=== PATIENT | male | born 1995 | race Caucasian/White ===

== ENCOUNTER 2025-04-08 15:26 | Inpatient (IN) | payer OTHER, SELFPAY ==
--- NOTE | 2025-04-08 15:30 | ED.PSYCH ---
HPI - Psych General Chief Complaint: Psychiatric Symptoms Stated Complaint: Hearing voices, SI Time Seen by Provider: 04/08/25 15:52 Source: patient and old records reviewed Mode of arrival: ambulatory Limitations: no limitations History of Present Illness ED Provider: LOTTIE ROLLE Narrative: 29 yo male with PMH of ADHD, bipolar disorder, substance abuse but in recovery x 9 months, he is at a prison house but hates it here. He feels suicidal and is hearing voices. He hopes to go back to living near [place] as he wants to be closer to home. He denies any medical issues or concerns. He is taking his medications MD complaint: suicidal ideation, feels depressed and hallucinations Onset (ago): day(s) (several) Duration: getting worse History of same: Yes Relieving factors: none Exacerbating factors: other Context: significant life stressor Associated psychiatric symptoms: depression, suicidal ideation and auditory hallucinations Associated symptoms: denies other symptoms Treatments prior to arrival: none Related Data Home Medications ?Medication ?Instructions ?Recorded ?Confirmed olanzapine 20 mg tablet 20 mg PO BEDTIME 04/08/25 04/09/25 bupropion HCl 150 mg 24 hr tablet, 150 mg PO DAILY 04/09/25 04/09/25 extended release buspirone 7.5 mg tablet 7.5 mg PO QAM 04/09/25 04/09/25 dextroamphetamine-amphetamine ER 20 mg PO QAM 04/09/25 04/09/25 20 mg 24hr capsule,extend release (Adderall XR) divalproex 500 mg tablet,extended 1,000 mg PO BEDTIME 04/09/25 04/09/25 release 24 hr (Depakote ER) gabapentin 300 mg capsule 300 mg PO QAM 04/09/25 04/09/25 Allergies Allergy/AdvReac Type Severity Reaction Status Date / Time haloperidol (From Haldol) Allergy Unknown Verified 04/08/25 15:33 quetiapine (From Seroquel) Allergy Unknown Verified 04/08/25 15:33 risperidone (From Risperdal) Allergy Unknown Verified 04/08/25 15:33 Review of Systems Review of Systems: Constitutional : No Fever, No Chills ENT/Mouth : No Ear Pain, No Nasal Congestion, No sore throat Eyes: No Eye Pain, No Swelling, No Redness Cardiovascular : No Chest Pain, No SOB Respiratory : No Cough, No Sputum, No Dyspnea Gastrointestinal : No Nausea, No Vomiting, No Diarrhea, No Hematochezia, No Melena Genitourinary : No Dysuria, No Urinary Frequency, No Hematuria Musculoskeletal : No Myalgias Skin : No Skin Lesions, No rash Neuro : No Weakness, No Numbness, No Paresthesias, No Dizziness, No Headache Psych : positive Anxiety, positive Depression, positive SI no HI All other systems reviewed and are negative [facility], [facility] Past Medical History Attestation statement: The following information was validated with the patient. Source: old records reviewed Social History Social History Smoked in Last 30 Days: Yes Use of substances other than those prescribed or required for medical reasons: No Advance Directives: No Advance Directives Information Provided: Yes Do you have a plan to hurt others: No Plan Physical Exam Vital Signs: Vital Signs: Last Vital Signs Temp 98.0 F 04/11/25 09:11 Pulse 78 04/11/25 09:11 Resp 16 04/11/25 09:11 BP 116/61 04/11/25 09:11 Pulse Ox 98 04/11/25 09:11 O2 Del Method Room Air 04/11/25 09:11 BMI result Body Mass Index 23.6 Appearance: Alert. Oriented X3. No acute distress. Eyes: Pupils equal, round and reactive to light. ENT: Pharynx normal. Neck: Normal inspection. Neck supple. CVS: Normal heart rate and rhythm. Pulses normal. Respiratory: No respiratory distress. Breath sounds normal. Abdomen: Soft and nontender. Skin: Skin warm and dry. Normal skin color. Normal skin turgor. Extremities: No lower extremity edema. No calf ttp Neuro: Oriented X 3. No motor deficit. No sensory deficit. CN2-12 intact Course Course Course Narrative: Yuridia Akins [employer] 04/08/25 0944 This is a rapid medical exam. Deferred additional HPI, ROS, PE to primary provider. 29 yo male with history of schizophrenia, bipolar disorder, ADHD here with complaints of SI, hearing voices. Released from [facility] one month ago. Reporrs medication changes since then. NO substance use. NO physical complaints. Will order labs, PERAZA, safety checks VSS Reevaluation(s) Reevaluation #1: Providing p.o. medications for anxiety Time: 15:23 Reevaluation #2: DR. Krueger's progress note 04/10/2025 9:00. VSS, calm, continue with section 12, bed search is underway, will continue with physician observation. Time: 09:00 Reevaluation #3: Time: 08:50 Date: 04/11/25 Provider: ABDOUL Walker Patient in physician observation for psychiatric evaluation.? No acute events reported overnight. No current complaints. VS stable.? Patient is in bed search status. Will continue to monitor. Additional Reevaluation(s): Time: 13:49 Date: 04/11/25 Provider: Madison Dowell DO Physician observation ended at 149pm. Patient to be admitted as inpatient to psychiatry. Medications Administered Generic Name Dose Route Start Last Admin Trade Name Freq PRN Reason Stop Dose Admin Amphetamine/Dextroamphetamine 20 mg 04/09/25 17:00 04/11/25 09:05 Dextroamphetamine/Amphetamine Xr 10 Mg Cap.Er.24h PO 20 mg DAILY KARI Administration Bupropion HCl 150 mg 04/10/25 09:00 04/11/25 09:05 Bupropion Hcl Xl 150 Mg Tab.Er.24h PO 150 mg DAILY KARI Administration Buspirone HCl 7.5 mg 04/09/25 17:00 04/11/25 09:05 Buspirone Hcl 5 Mg Tablet PO 7.5 mg DAILY KARI Administration Divalproex Sodium 1,000 mg 04/09/25 21:00 04/10/25 21:32 Divalproex Sodium Er 500 Mg Tab.Er.24h PO 1,000 mg BEDTIME KARI Administration Gabapentin 300 mg 04/09/25 17:00 04/11/25 09:05 Gabapentin 300 Mg Capsule PO 300 mg DAILY KARI Administration Olanzapine 20 mg 04/08/25 21:55 04/10/25 21:32 Olanzapine 10 Mg Tablet PO 20 mg BEDTIME KARI Administration Discontinued Medications Generic Name Dose Route Start Last Admin Trade Name Freq PRN Reason Stop Dose Admin Diazepam 4 mg 04/09/25 15:23 04/09/25 15:45 Diazepam 2 Mg Tablet PO 04/09/25 15:24 4 mg ONCE ONE Administration Medical Decision Making Medical Decision Making MDM Narrative: 29 yo male with PMH of ADHD, bipolar disorder, substance abuse now here with SI and hearing voices he is compliant with medications but notes he hates his sober living area and wants to be closer to [place]. He has no medical issues or concerns at this time Differential Diagnosis Differential Diagnoses: The differential diagnosis associated with the presentation includes depression, SI Admission/Observation Consideration of admission/observation: Escalation of care including admission/observation considered physician observation started at 428pm pending CARE team Consult Healthcare Provider Management of the patient was discussed with: Behavioral Health Provider Lab Data [facility] Lab Attestation statement: I reviewed the patient's lab results. 04/08/25 16:00 04/08/25 16:00 Labs: Lab Results 04/08/25 04/08/25 04/08/25 Range/Units 15:55 16:00 17:20 WBC 5.9 (4.8-10.8) X10*3/uL RBC 4.03 L (4.60-5.80) X10*6/uL Hgb 13.5 L (14.0-18.0) g/dl Hct 37.1 L (42.0-52.0) % MCV 92.1 (80.0-98.0) fL MCH 33.5 H (27.0-33.0) pg MCHC 36.4 H (31.0-36.0) g/dl RDW 11.2 (11.0-16.0) % Plt Count 217 (160-400) X10*3/uL MPV 9.6 (9.4-12.4) fL Immature Gran % (Auto) 0.3 (0.0-0.4) % Neut % (Auto) 67.9 (45-73) % Lymph % (Auto) 19.1 L (20-40) % [place] % (Auto) 10.8 (2-11) % Eos % (Auto) 1.4 (0-4) % Baso % (Auto) 0.5 (0-2) % Lymph # (Auto) 1.1 L (1.2-4.9) X10*3/uL [place] # (Auto) 0.6 (0.1-1.2) X10*3/uL Eos # (Auto) 0.1 (0.0-0.4) X10*3/uL Baso # (Auto) 0.0 (0.0-0.2) X10*3/uL Abs Immat Gran (auto) 0.02 (0.00-0.03) X10*3/uL Absolute Neuts (auto) 4.0 (2.0-8.3) x10*3/uL Absolute Nucleated RBC 0.000 (0.0-0.012) X10*3/uL Nucleated RBC % (auto) 0.0 (0.0-0.2) /100WBC Sodium 139 (135-145) mmol/L Potassium 3.9 (3.3-5.1) mmol/L Chloride 105 (96-108) mmol/L Carbon Dioxide 26 (22-29) mmol/L Anion Gap 12 (12-20) BUN 5 L (9-16) mg/dL Creatinine 0.84 (0.5-1.4) mg/dL Estim Creat Clear Calc 127.4 Estimated GFR > 60 Random Glucose 93 (60-115) mg/dL Calcium 9.6 (8.4-10.2) mg/dL Total Bilirubin 0.3 (0.0-1.0) mg/dL Direct Bilirubin 0.1 (0.0-0.5) mg/dL AST 22 (5-37) U/L ALT 16 (0-40) U/L Alkaline Phosphatase 56 (39-117) U/L Total Protein 7.1 (6.5-8.0) g/dL Albumin 4.4 (3.5-5.0) g/dL Urine Color Urine Appearance Urine pH (5.0-9.0) Ur Specific [place] (1.005-1.025) Urine Protein (Neg-Trace) mg/dL Urine Glucose (UA) (Negative) mg/dL Urine Ketones (Negative) mg/dL Urine Blood (Negative) Urine Nitrite (Negative) Ur Leukocyte Esterase (Negative) Salicylates < 5.0 L (15-30) mg/dL Urine Opiates Screen Not Detected (Not Detect) Ur Buprenorphine Scrn Not Detected (Not Detect) ng/mL Ur Oxycodone Screen Not Detected (Not Detect) ng/mL Urine Methadone Screen Not Detected (Not Detect) ng/mL Urine Fentanyl Screen Not Detected (Not Detect) Acetaminophen < 3 (<30) mcg/mL Ur Barbiturates Screen Not Detected (Not Detect) Valproic Acid 43.4 L (50.0-100.0) mcg/mL Ur Phencyclidine Scrn Not Detected (Not Detect) Ur Amphetamines Screen Not Detected (Not Detect) U Benzodiazepines Scrn Not Detected (Not Detect) Urine Cocaine Screen Not Detected (Not Detect) U Marijuana (THC) Screen Not Detected (Not Detect) Ethyl Alcohol < 10 mg/dL 04/11/25 Range/Units 10:39 WBC (4.8-10.8) X10*3/uL RBC (4.60-5.80) X10*6/uL Hgb (14.0-18.0) g/dl Hct (42.0-52.0) % MCV (80.0-98.0) fL MCH (27.0-33.0) pg MCHC (31.0-36.0) g/dl RDW (11.0-16.0) % Plt Count (160-400) X10*3/uL MPV (9.4-12.4) fL Immature Gran % (Auto) (0.0-0.4) % Neut % (Auto) (45-73) % Lymph % (Auto) (20-40) % [place] % (Auto) (2-11) % Eos % (Auto) (0-4) % Baso % (Auto) (0-2) % Lymph # (Auto) (1.2-4.9) X10*3/uL [place] # (Auto) (0.1-1.2) X10*3/uL Eos # (Auto) (0.0-0.4) X10*3/uL Baso # (Auto) (0.0-0.2) X10*3/uL Abs Immat Gran (auto) (0.00-0.03) X10*3/uL Absolute Neuts (auto) (2.0-8.3) x10*3/uL Absolute Nucleated RBC (0.0-0.012) X10*3/uL Nucleated RBC % (auto) (0.0-0.2) /100WBC Sodium (135-145) mmol/L Potassium (3.3-5.1) mmol/L Chloride (96-108) mmol/L Carbon Dioxide (22-29) mmol/L Anion Gap (12-20) BUN (9-16) mg/dL Creatinine (0.5-1.4) mg/dL Estim Creat Clear Calc Estimated GFR Random Glucose (60-115) mg/dL Calcium (8.4-10.2) mg/dL Total Bilirubin (0.0-1.0) mg/dL Direct Bilirubin (0.0-0.5) mg/dL AST (5-37) U/L ALT (0-40) U/L Alkaline Phosphatase (39-117) U/L Total Protein (6.5-8.0) g/dL Albumin (3.5-5.0) g/dL Urine Color Yellow Urine Appearance Clear Urine pH 6.5 (5.0-9.0) Ur Specific [place] 1.025 (1.005-1.025) Urine Protein Negative (Neg-Trace) mg/dL Urine Glucose (UA) Negative (Negative) mg/dL Urine Ketones Trace (Negative) mg/dL Urine Blood Negative (Negative) Urine Nitrite Negative (Negative) Ur Leukocyte Esterase Negative (Negative) Salicylates (15-30) mg/dL Urine Opiates Screen (Not Detect) Ur Buprenorphine Scrn (Not Detect) ng/mL Ur Oxycodone Screen (Not Detect) ng/mL Urine Methadone Screen (Not Detect) ng/mL Urine Fentanyl Screen (Not Detect) Acetaminophen (<30) mcg/mL Ur Barbiturates Screen (Not Detect) Valproic Acid (50.0-100.0) mcg/mL Ur Phencyclidine Scrn (Not Detect) Ur Amphetamines Screen (Not Detect) U Benzodiazepines Scrn (Not Detect) Urine Cocaine Screen (Not Detect) U Marijuana (THC) Screen (Not Detect) Ethyl Alcohol mg/dL External Record Review External record reviewed: Outpatient record Social Determinants Patient?s care significantly limited by Social Determinants of Health including: Problems related to primary support group Discharge Plan Discharge Clinical Impression: Depression Patient Disposition: Admitted As Inpatient Interventions: [place]-Suicide Risk Severity Scale Last Done: 04/09/25 19:00 Print Language: Cook Islander
[2025-04-08 15:31] VITALS: BP 140/66; PULSE 89; RESP 18; TEMP 36.6; O2SAT 98; BMI 23.6
[2025-04-08 16:08] LABS: MANUAL DIFF FLAG NO
[2025-04-08 16:10] LABS: Hematocrit 37.1 % (42.0-52.0); Hemoglobin 13.5 g/dl (14.0-18.0); Imm Gran Abs Auto 0.02 X10*3/uL (0.00-0.03); Imm Gran Pct Auto 0.3 % (0.0-0.4); Lymphocytes Absolute Auto 1.1 X10*3/uL (1.2-4.9); Mean Corpuscular HGB Conc 36.4 g/dl (31.0-36.0); Mean Corpuscular Hemoglobin 33.5 pg (27.0-33.0); Mean Corpuscular Volume 92.1 fL (80.0-98.0); NRBC Abs Auto 0.000 X10*3/uL (0.0-0.012); NRBC Pct Auto 0.0 /100WBC (0.0-0.2); Platelet Count 217 X10*3/uL (160-400); Red Blood Count 4.03 X10*6/uL (4.60-5.80); White Blood Count 5.9 X10*3/uL (4.8-10.8)
[2025-04-08 16:22] LABS: Cannabinoid Screen Urine Not Detected (Not Detect)
[2025-04-08 16:33] LABS: Alanine Aminotransferase 16 U/L (0-40); Albumin Level 4.4 g/dL (3.5-5.0); Alkaline Phosphatase 56 U/L (39-117); Anion Gap 12 (12-20); Aspartate Amino Transferase 22 U/L (5-37); Blood Urea Nitrogen 5 mg/dL (9-16); Calcium 9.6 mg/dL (8.4-10.2); Carbon Dioxide 26 mmol/L (22-29); Chloride 105 mmol/L (96-108); Creatinine Clr Calc Pharmacy 127.4; Estimated Glomerular Filt Rate > 60; Potassium 3.9 mmol/L (3.3-5.1); Sodium 139 mmol/L (135-145); Total Protein 7.1 g/dL (6.5-8.0)
[2025-04-08 16:36] LABS: Acetaminophen LAB < 3 mcg/mL (<30); Salicylate < 5.0 mg/dL (15-30)
--- NOTE | 2025-04-08 19:36 | PC.NURSE ---
Assumed care of patient at 1845, patient appears to be in no apparent distress this evening, resting in bed, calm and coopertive, offering no complaints to staff. Continue plan of care for IPLOC
[2025-04-08 20:19] VITALS: BP 132/65; PULSE 68; RESP 18; TEMP 36.7; O2SAT 99
--- NOTE | 2025-04-08 20:47 | PC.NURSE ---
RE: med rec this RN attempted to complete pts med rec. Pt verbalizes that he takes Depakote (unsure of dose) as well as Ativan 2mg (unsure of timing) and Zyprexa 20mg at bedtime. This RN attempted to call the [facility] to verify, unable to get through to staff. Pt states he does not know what pharmacy he receives his medications through as the staff at the [facility] manage his medications for him
[2025-04-08 22:00] VITALS: RESP 16
[2025-04-09 06:44] VITALS: BP 112/64; PULSE 62; RESP 17; TEMP 36.5; O2SAT 98
--- NOTE | 2025-04-09 07:37 | PC.NURSE ---
Pt has been sleeping since this RN arrival.
--- NOTE | 2025-04-09 08:01 | PC.NURSE ---
Message left at [facility] in an attempt to complete med Rec. [phone]
--- NOTE | 2025-04-09 10:51 | PC.NURSE ---
pt continues to sleep. [place] called again. unable to reach a human.
--- NOTE | 2025-04-09 15:01 | PC.NURSE ---
Patient is requesting Adderall, but cannot recall dosage or what pharmacy he uses. Attempted to contact Karen Kan Jonn Guerra without response. CARE team aware and to attempt to reach out to [facility] regarding an updated medication list. Pharmacy also aware.
[2025-04-09 15:13] VITALS: BP 115/60; PULSE 82; RESP 14; TEMP 36.8; O2SAT 97
--- NOTE | 2025-04-09 16:17 | PC.NURSE ---
Spoke with Kelly at [facility] regarding medication list. Called [phone]. Fax number provided. Awaiting receipt.
--- NOTE | 2025-04-09 16:32 | PC.NURSE ---
Received medication list from Karen Kan ([facility]) via fax. Medication reconciliation completed. Copy of list also faxed to pharmacy. Provider aware (Dr. Ochoa). List filed into paper chart.
--- NOTE | 2025-04-09 17:01 | PHA.MEDREC ---
Pharmacy Consult ? Medication Reconciliation Pharmacy has reviewed the medication reconciliation done by nursing.
--- NOTE | 2025-04-09 22:41 | PC.NURSE ---
Patient sleeping at this time. Respirations even/unlabored. No acute distress noted at this time. Care ongoing by this RN.
--- NOTE | 2025-04-10 01:01 | PC.NURSE ---
Report received and care assumed at 2300. Pt has been resting comfortably in his bed without issue noted.
--- NOTE | 2025-04-10 07:04 | PC.NURSE ---
Patient is a 29 yo male with a history of schizoaffective d/o, ADHD, polysubstance abuse, complex trauma and multiple suicide attempts presents from the [facility] with worsening depression, SI and command auditory hallucinations. Resting quietly at this time. Respirations even and non-labored. No distress noted. Pending IPLOC.
[2025-04-10] MEDS: buPROPion HCl XL 150 MG TAB.ER.24H PO (09:36)
[2025-04-10] MEDS: Dextroamphetamine/Amphetamine XR 10 MG CAP.ER.24H 20 MG PO (09:37)
[2025-04-10 09:39] VITALS: BP 154/90; PULSE 101; RESP 18; TEMP 36.7; O2SAT 98
[2025-04-10 15:45] VITALS: BP 115/65; PULSE 96; RESP 14; TEMP 37.1; O2SAT 99
[2025-04-10 19:51] VITALS: BP 114/58; PULSE 85; RESP 16; TEMP 36.9; O2SAT 98
--- NOTE | 2025-04-11 | ECG_ITS ---
Test Reason : R/O PROLONGED QT Blood Pressure : */* mmHG Vent. Rate : 66 BPM Atrial Rate : 66 BPM P-R Int : 128 ms QRS Dur : 90 ms QT Int : 376 ms P-R-T Axes : 6 68 47 degrees QTcB Int : 394 ms Normal sinus rhythm Normal ECG No previous ECGs available Referred By: Madison Dowell Electronically Signed By: KINGS CSOME MD
--- NOTE | 2025-04-11 06:00 | PC.NURSE ---
Pt slept throughout the night. No apparent distress noted. Breaths equal even and unlabored with equal chest rises. Monitoring is ongoing.
--- NOTE | 2025-04-11 07:18 | PC.NURSE ---
Assumed care of patient at 0645 patient appears to be in no apparent distress this am, resting in bed, respirations even and unlabored. Continue plan of care for IPLOC
[2025-04-11] MEDS: Dextroamphetamine/Amphetamine XR 10 MG CAP.ER.24H 20 MG PO (09:05)
[2025-04-11] MEDS: buPROPion HCl XL 150 MG TAB.ER.24H PO (09:05)
[2025-04-11 09:11] VITALS: BP 116/61; PULSE 78; RESP 16; TEMP 36.7; O2SAT 98
--- NOTE | 2025-04-11 09:13 | MHC.EDTECH ---
Urine cup at bedside, patient aware that sample needs to be given, unable to void at this time.
[2025-04-11 10:47] LABS: Appearance Urine Clear; Glucose Urine UA Negative (Negative); PH 6.5 (5.0-9.0); Specific Gravity - Urine 1.025 (1.005-1.025)
[2025-04-11 15:00] VITALS: BP 122/64; PULSE 68; RESP 16; TEMP 36.6; O2SAT 97
[2025-04-11 16:43] VITALS: BMI 23.6
--- NOTE | 2025-04-11 17:10 | PC.NURSE ---
Giovanni was admitted to M3 at 1452 from [facility] Pod on CV for treatment of mood disorder with psychosis and si. He lives at [facility] and has been experiencing increased ah and vh and depressed mood since his parole ended about a month ago. On arrival to the ED he was endorsing SI with a plan to hang himself. He was in the pod for 3 days. On arrival to the unit he denies current SI, HI, plan or intent to harm self or others. He denies AH and VH. Pt wants to return to [place] where he grew up and his family and friends are there. He is alert, with constricted affect. He participated in his nursing assessment but appeared guarded with some thought blocking. Mood is depressed. He reports good appetite and good sleep. He has been clean from crack for 10 months and tox screen is negative. He denies medical issues?and denies physical complaint. Skin check is notable for a sunburn. Safety Checks are q 15 minutes.
--- NOTE | 2025-04-11 17:23 | PC.NURSE ---
[facility] [place] clinical statistical programmer Lyn Melisa [phone] called to coordinate care. Pt gave one time verbal permission for me to talk to her but declined to sign ROIs except for his insurance.
--- NOTE | 2025-04-11 19:58 | HO.PSYADMNOT ---
HPI Date of Service: 04/11/25 Chief Complaint: CRISIS Sources of Information: patient interviewed, chart reviewed and crisis/core team assessment reviewed HPI Subjective Notes: [place] Warning and Conditional Voluntary Healthcare Proxy: No Guardianship: No Medical Problems Affecting Mental Status: No Narrative: Per care team notes, patient is a 29 years old why Maltese speaking male with history of schizophrenic bipolar disorder, ADHD, cocaine/crack use DO who self presented to [facility] due to concerns SI and hallucinations. Reports increase in depression the past month while at the [facility]. On admission to [facility], patient reports main reason brought him here is suicidal thoughts . Denies plan or intention. Reports everything built up in the past month, increased anxiety and increased aggravated. Reported he has been staying with his friends but preferred to go back to [place] where he has friends and family in the area. Denies SI/SIB/HI//AVH. Denied history of hallucinations, reports history of suicidal thoughts history without plan or intent to harm himself. Reports wants suicide attempt history when he was 14 years old as he tried to hang himself when he was in the [facility] and was stopped. Reports sleep and appetite has been good. Mood is alright . Reports depression a 5/10. He is incongruent with his mood, denies anxiety at 1st and then when asking about the goals to work on whle he is here, he reports wanted to work on depression and anxiety. He also wants to get medication adjustment. Denies any medical condition, denies surgical history. Denies trauma history. History of crack use but not currently, last use was 9 months ago. Smoking marijuana daily but also stopped it for 9 months. He was not sure if he smokes cigarettes. No symptoms of withdrawal on any substances. Denies alcohol use. History of a lot of admission in the past, with last admission was a year ago, unsure where he is was admitted and for what reason I do not remember . Denies PHP, denies detox history. Reports history of ADHD, bipolar, and schizophrenic. He is depressed, underlying irritability, but engageable, somewhat guarded. Do not appear to be psychotic, do not make any delusional paranoid statements. No safety concerns at this current time, he is open for treatment, and he wants help. Past Psychiatric History: A lot [facility] admissions, last admission was a year ago, do not remember the place reasons he was admitted last time. Currently have outpatient psychiatrist, but wants to return to [place]. Need to reconnect with outpatient in the area. No current therapist or PCP. He is not interested in in new therapist/a PCP Medication trials: Haldol make him visual hallucination: Seeing weird colors. He was fainted on Seroquel, and risperidone causing hives/rash Medical Evaluation Reviewed: Yes [facility] Narrative: Denies Narrative: Denies Family History: Parents are alive. He has 5 siblings. Reports he has known not talking to them the past month. He not sure if anyone has mental health illnesses. Patient does not want to disclose family of substance use their own business Social History: He is single, never , have no children, not having his own place, but has been staying with friends. Wanted to go back to [place] where he has friends and families. Graduated from high school. Currently has no SSI/or SSDI. Not working. Substance History: History of using crack and marijuana. However reports has not used for 9 months. Denies cigarette smoking. Denies other substance use. Denied detox history Trauma History: Denies Diagnostics Vital Signs (24Hr): Vital Signs - 24 hr 04/11/25 09:11 04/11/25 15:00 Temperature 98.0 F 97.8 F Pulse Rate 78 68 Respiratory Rate 16 16 Blood Pressure 116/61 122/64 Pulse Oximetry 98 97 Oxygen Delivery Method Room Air Room Air BMI result Body Mass Index 23.6 Labs 04/08/25 16:00 04/08/25 16:00 Labs: Laboratory Results - last 48 hr 04/11/25 10:39 Urine Color Yellow Urine Appearance Clear Urine pH 6.5 Ur Specific [place] 1.025 Urine Protein Negative Urine Glucose (UA) Negative Urine Ketones Trace Urine Blood Negative Urine Nitrite Negative Ur Leukocyte Esterase Negative Meds/Allergies Meds Home Medications ?Medication ?Instructions ?Recorded ?Confirmed ?Type olanzapine 20 mg tablet 20 mg PO BEDTIME 04/08/25 04/09/25 History bupropion HCl 150 mg 24 hr tablet, 150 mg PO DAILY 04/09/25 04/09/25 History extended release buspirone 7.5 mg tablet 7.5 mg PO QAM 04/09/25 04/09/25 History dextroamphetamine-amphetamine ER 20 mg PO QAM 04/09/25 04/09/25 History 20 mg 24hr capsule,extend release (Adderall XR) divalproex 500 mg tablet,extended 1,000 mg PO BEDTIME 04/09/25 04/09/25 History release 24 hr (Depakote ER) gabapentin 300 mg capsule 300 mg PO QAM 04/09/25 04/09/25 History Allergies Allergies Allergy/AdvReac Type Severity Reaction Status Date / Time haloperidol (From Haldol) Allergy Unknown Verified 04/08/25 15:33 quetiapine (From Seroquel) Allergy Unknown Verified 04/08/25 15:33 risperidone (From Risperdal) Allergy Unknown Verified 04/08/25 15:33 Mental Status Exam Mental Status Exam Narrative: Patient is alert and oriented x4; behavior is cooperative, someehat guarded with underline irritability, mild to moderate anxiety; patient is not in distress; dressed in hospital attire with kempt hair andt adequate hygiene; mood is described as alright and affect incongruent; eye contact appropriate; Speech is normal rate, volume and prosody and not pressured; no psychomotor agitation/retardation present; thought process is organized and goal directed; Thought content is WNL, want treatment, pertinent to relevant topics and without any delusional content, paranoid ideation or grandiosity; denies any SI/SIB/HI. Denies AH and there is no evidence of perceptual disturbance. Patient's insight and judgment impaired. Assessment & Plan Assessment & Plan (1) Schizophrenic disorder: Status: Acute Code(s): F20.9 - Schizophrenia, unspecified (2) Bipolar affect, depressed: Status: Acute Code(s): F31.30 - Bipolar disorder, current episode depressed, mild or moderate severity, unspecified (3) ADHD (attention deficit hyperactivity disorder): Status: Acute Code(s): F90.9 - Attention-deficit hyperactivity disorder, unspecified type Plan HPI: patient is a 29 years old why Maltese speaking male with history of schizophrenic bipolar disorder, ADHD, cocaine/crack use disorder who self presented to [facility] due to concerns SI and hallucinations. Reports increase in depression the past month while at the [facility]. Formulation/clinical reasoning: Increasing in depression/anxiety/and suicidal thoughts in the past month. History of bipolar, schizophrenic, ADHD, history of suicide attempt by hanging self. Minimal family and support system, unstable housing. Given the above information, patient would be benefit from restrictive environment for own safety, medication adjustment, and refer patient to outpatient psychiatry services for aftercare upon discharge Hospital course: 04/11/25: Restart home medications. We will check the Depakote level in the next couple of days. VPA level 41.2 low. Not sure if patient has been compliant with meds prior to be admitted. Will add 250mg at HS. Total of 1,250mg ER at HS for mood. Increase the BuSpar from 7.5 daily to 7+ twice a day for anxiety. Plan Patient on 15 minute checks for safety. Admitted to [facility]. CV. Work with treatment team to do collateral and for for of appointments for aftercare. Check Depakote level at appropriate time in 3-5 days. Patient educated on: diagnosis, medication risk/benefits and therapeutic strategies Informed Consent: understands and further education needed Reason for continued inpatient stay Substantial Risk for: med/psych decompensation Statement Statement: I have reviewed the history and physical and performed a pertinent examination on my patient. No changes have occurred unless specified. If the History and Physical was not performed prior to admission, the Hospitalist's service will be consulted for completing the admission physical. Time Spent With Patient Time: Total time managing care of this patient today ____ minutes.
[2025-04-11 20:00] VITALS: BP 139/66; PULSE 91; RESP 15; TEMP 37.2; O2SAT 98
[2025-04-11] MEDS: Divalproex Sodium ER 250 MG TAB.ER.24H PO (20:52)
[2025-04-12 07:28] VITALS: BP 126/67; PULSE 72; RESP 16; TEMP 36.4; O2SAT 98
[2025-04-12] MEDS: buPROPion HCl XL 150 MG TAB.ER.24H PO (08:48)
[2025-04-12] MEDS: Dextroamphetamine/Amphetamine XR 10 MG CAP.ER.24H 20 MG PO (08:48)
--- NOTE | 2025-04-12 10:29 | HO.PSYCHPN ---
Subjective Subjective Date of Service: 04/12/25 Reason For Visit: CRISIS Subjective Notes: Conditional Voluntary Interim History: Active on unit. Patient reports feeling depressed d/t wanting to return to [place] to be near family and friends. Patient reports he does not want to return to [facility] d/t not liking anyone there . He reports having auditory hallucinations being negative and visual hallucinations of colors . denies SI/HI. Valproic acid level 43.4 on 04/08/25. Continue current tx plan. Medication Compliance: Yes Side effects from medications: No Attending Groups: No Mental Status Exam Mental Status Exam Narrative: Pt is alert and oriented; behavior is cooperative and calm; dressed in casual attire; mood is described as depressed ; eye contact appropriate; Speech is normal rate, volume and not pressured; thought process is organized; Thought content is on returning to [place]; denies SI/HI.Pt reports +AH/VH Diagnostics Vital Signs (24Hr): Vital Signs - 24 hr 04/11/25 15:00 04/11/25 20:00 04/12/25 07:28 Temperature 97.8 F 99 F 97.5 F Pulse Rate 68 91 72 Respiratory Rate 16 15 16 Blood Pressure 122/64 139/66 126/67 Pulse Oximetry 97 98 98 Oxygen Delivery Method Room Air Room Air Room Air BMI result Body Mass Index 23.6 Labs 04/08/25 16:00 04/08/25 16:00 Labs: Laboratory Results - last 48 hr 04/11/25 10:39 Urine Color Yellow Urine Appearance Clear Urine pH 6.5 Ur Specific [place] 1.025 Urine Protein Negative Urine Glucose (UA) Negative Urine Ketones Trace Urine Blood Negative Urine Nitrite Negative Ur Leukocyte Esterase Negative Medications Medications Current Medications Acetaminophen (Acetaminophen 325 Mg Tablet) 650 mg PO Q6H PRN PRN Reason: Headache/Pain, Scale 1-10 Al Hydroxide/Mg Hydroxide (Magnesium Hydrox/Alum Hydrox 30 Ml Oral.Susp) 30 ml PO Q6H PRN PRN Reason: Heartburn/Nausea Amphetamine/Dextroamphetamine (Dextroamphetamine/Amphetamine Xr 10 Mg Cap.Er.24h) 20 mg PO DAILY [facility] Last Admin: 04/12/25 08:48 Dose: 20 mg Bupropion HCl (Bupropion Hcl Xl 150 Mg Tab.Er.24h) 150 mg PO DAILY [facility] Last Admin: 04/12/25 08:48 Dose: 150 mg Buspirone HCl (Buspirone Hcl 5 Mg Tablet) 7.5 mg PO BID [facility] Last Admin: 04/12/25 08:48 Dose: 7.5 mg Divalproex Sodium (Divalproex Sodium Er 500 Mg Tab.Er.24h) 1,000 mg PO BEDTIME [facility] Last Admin: 04/11/25 20:43 Dose: 1,000 mg Divalproex Sodium (Divalproex Sodium Er 250 Mg Tab.Er.24h) 250 mg PO BEDTIME [facility] Last Admin: 04/11/25 20:52 Dose: 250 mg Gabapentin (Gabapentin 300 Mg Capsule) 300 mg PO DAILY [facility] Last Admin: 04/12/25 08:49 Dose: 300 mg Hydroxyzine HCl (Hydroxyzine Hcl 25 Mg Tablet) 25 mg PO Q6H PRN PRN Reason: mild anxiety Magnesium Hydroxide (Milk Of Magnesia 30 Ml Oral.Susp) 30 ml PO DAILY PRN PRN Reason: Constipation Nicotine (Nicotine 21 Mg Patch.Td24) 21 mg TRANSDERMA DAILY [facility] Last Admin: 04/12/25 08:48 Dose: Not Given Nicotine Polacrilex (Nicotine Polacrilex 2 Mg Gum) 4 mg BUCCAL Q2H PRN PRN Reason: Nicotine Cravings Olanzapine (Olanzapine 10 Mg Tablet) 20 mg PO BEDTIME [facility] Last Admin: 04/11/25 20:42 Dose: 20 mg Olanzapine (Olanzapine 5 Mg Tablet) 5 mg PO Q4H PRN PRN Reason: agitation Trazodone HCl (Trazodone Hcl 50 Mg Tablet) 50 mg PO BEDTIME MRX1 PRN PRN Reason: Insomnia Allergies Allergies Allergy/AdvReac Type Severity Reaction Status Date / Time haloperidol (From Haldol) Allergy Unknown Verified 04/08/25 15:33 quetiapine (From Seroquel) Allergy Unknown Verified 04/08/25 15:33 risperidone (From Risperdal) Allergy Unknown Verified 04/08/25 15:33 Assessment & Plan Assessment & Plan (1) Schizophrenic disorder: Status: Acute Code(s): F20.9 - Schizophrenia, unspecified (2) Bipolar affect, depressed: Status: Acute Code(s): F31.30 - Bipolar disorder, current episode depressed, mild or moderate severity, unspecified (3) ADHD (attention deficit hyperactivity disorder): Status: Acute Code(s): F90.9 - Attention-deficit hyperactivity disorder, unspecified type Plan HPI: patient is a 29 years old why Polish speaking male with history of schizophrenic bipolar disorder, ADHD, cocaine/crack use disorder who self presented to [facility] due to concerns SI and hallucinations. Reports increase in depression the past month while at the [facility]. Formulation/clinical reasoning: Increasing in depression/anxiety/and suicidal thoughts in the past month. History of bipolar, schizophrenic, ADHD, history of suicide attempt by hanging self. Minimal family and support system, unstable housing. Given the above information, patient would be benefit from restrictive environment for own safety, medication adjustment, and refer patient to outpatient psychiatry services for aftercare upon discharge Hospital course: 04/11/25: Restart home medications. We will check the Depakote level in the next couple of days. VPA level 41.2 low. Not sure if patient has been compliant with meds prior to be admitted. Will add 250mg at HS. Total of 1,250mg ER at HS for mood. Increase the BuSpar from 7.5 daily to 7+ twice a day for anxiety. Plan Patient on 15 minute checks for safety. Admitted to [facility]. CV. Work with treatment team to do collateral and for for of appointments for aftercare. Check Depakote level at appropriate time in 3-5 days. 04/12: Active on unit. Patient reports feeling depressed d/t wanting to return to [place] to be near family and friends. Patient reports he does not want to return to [facility] d/t not liking anyone there . He reports having auditory hallucinations being negative and visual hallucinations of colors . denies SI/HI. Valproic acid level 43.4 on 04/08/25. Continue current tx plan. Patient educated on: diagnosis, medication risk/benefits and therapeutic strategies Reason for continued inpatient stay Substantial Risk for: med/psych decompensation Time Spent With Patient Time: Total time managing care of this patient today _20___ minutes.
[2025-04-12 20:00] VITALS: BP 120/56; PULSE 83; RESP 16; TEMP 36.9; O2SAT 95
[2025-04-12] MEDS: Divalproex Sodium ER 250 MG TAB.ER.24H PO (20:11)
[2025-04-13 08:00] VITALS: BP 98/57; PULSE 73; RESP 16; TEMP 36.9; O2SAT 98
[2025-04-13] MEDS: Dextroamphetamine/Amphetamine XR 10 MG CAP.ER.24H 20 MG PO (08:37)
[2025-04-13] MEDS: buPROPion HCl XL 150 MG TAB.ER.24H PO (08:37)
--- NOTE | 2025-04-13 14:22 | HO.PSYCHPN ---
Subjective Subjective Date of Service: 04/13/25 Reason For Visit: CRISIS Subjective Notes: Conditional Voluntary Interim History: Active on unit. social with peers. Patient reports feeling a little anxious and depressed ; he reports he does not want to return to [facility] and doesn't want to be sober . pt stated, I want to be out there using crack with my friends . T/W and medical social consultant encouraged pt to return to [facility] to maintain sobriety; pt agreeable. denies SI/HI/AH/VH. Valproic acid level to be drawn tomorrow morning. Continue current tx plan. Medication Compliance: Yes Side effects from medications: No Attending Groups: Intermittent Mental Status Exam Mental Status Exam Narrative: Pt is alert and oriented; behavior is cooperative and calm; dressed in casual attire; mood is described as a little depressed ; eye contact appropriate; Speech is normal rate, volume and not pressured; thought process is organized; Thought content is on returning to [place]; denies SI/HI/AH/VH. Diagnostics Vital Signs (24Hr): Vital Signs - 24 hr 04/12/25 20:00 04/13/25 08:00 Temperature 98.4 F 98.5 F Pulse Rate 83 73 Respiratory Rate 16 16 Blood Pressure 120/56 L 98/57 L Pulse Oximetry 95 98 Oxygen Delivery Method Room Air Room Air BMI result Body Mass Index 23.6 Labs 04/08/25 16:00 04/08/25 16:00 Medications Medications Current Medications Acetaminophen (Acetaminophen 325 Mg Tablet) 650 mg PO Q6H PRN PRN Reason: Headache/Pain, Scale 1-10 Al Hydroxide/Mg Hydroxide (Magnesium Hydrox/Alum Hydrox 30 Ml Oral.Susp) 30 ml PO Q6H PRN PRN Reason: Heartburn/Nausea Amphetamine/Dextroamphetamine (Dextroamphetamine/Amphetamine Xr 10 Mg Cap.Er.24h) 20 mg PO DAILY [facility] Last Admin: 04/13/25 08:37 Dose: 20 mg Bupropion HCl (Bupropion Hcl Xl 150 Mg Tab.Er.24h) 150 mg PO DAILY [facility] Last Admin: 04/13/25 08:37 Dose: 150 mg Buspirone HCl (Buspirone Hcl 5 Mg Tablet) 7.5 mg PO BID [facility] Last Admin: 04/13/25 08:38 Dose: 7.5 mg Divalproex Sodium (Divalproex Sodium Er 500 Mg Tab.Er.24h) 1,000 mg PO BEDTIME [facility] Last Admin: 04/12/25 20:11 Dose: 1,000 mg Divalproex Sodium (Divalproex Sodium Er 250 Mg Tab.Er.24h) 250 mg PO BEDTIME [facility] Last Admin: 04/12/25 20:11 Dose: 250 mg Gabapentin (Gabapentin 300 Mg Capsule) 300 mg PO DAILY [facility] Last Admin: 04/13/25 08:37 Dose: 300 mg Hydroxyzine HCl (Hydroxyzine Hcl 25 Mg Tablet) 25 mg PO Q6H PRN PRN Reason: mild anxiety Last Admin: 04/13/25 11:32 Dose: 25 mg Magnesium Hydroxide (Milk Of Magnesia 30 Ml Oral.Susp) 30 ml PO DAILY PRN PRN Reason: Constipation Nicotine (Nicotine 21 Mg Patch.Td24) 21 mg TRANSDERMA DAILY [facility] Last Admin: 04/13/25 08:40 Dose: Not Given Nicotine Polacrilex (Nicotine Polacrilex 2 Mg Gum) 4 mg BUCCAL Q2H PRN PRN Reason: Nicotine Cravings Olanzapine (Olanzapine 10 Mg Tablet) 20 mg PO BEDTIME [facility] Last Admin: 04/12/25 20:11 Dose: 20 mg Olanzapine (Olanzapine 5 Mg Tablet) 5 mg PO Q4H PRN PRN Reason: agitation Last Admin: 04/13/25 11:32 Dose: 5 mg Trazodone HCl (Trazodone Hcl 50 Mg Tablet) 50 mg PO BEDTIME MRX1 PRN PRN Reason: Insomnia Allergies Allergies Allergy/AdvReac Type Severity Reaction Status Date / Time haloperidol (From Haldol) Allergy Unknown Verified 04/08/25 15:33 quetiapine (From Seroquel) Allergy Unknown Verified 04/08/25 15:33 risperidone (From Risperdal) Allergy Unknown Verified 04/08/25 15:33 Assessment & Plan Assessment & Plan (1) Schizophrenic disorder: Status: Acute Code(s): F20.9 - Schizophrenia, unspecified (2) Bipolar affect, depressed: Status: Acute Code(s): F31.30 - Bipolar disorder, current episode depressed, mild or moderate severity, unspecified (3) ADHD (attention deficit hyperactivity disorder): Status: Acute Code(s): F90.9 - Attention-deficit hyperactivity disorder, unspecified type Plan HPI: patient is a 29 years old why Spanish speaking male with history of schizophrenic bipolar disorder, ADHD, cocaine/crack use disorder who self presented to [facility] due to concerns SI and hallucinations. Reports increase in depression the past month while at the [facility]. Formulation/clinical reasoning: Increasing in depression/anxiety/and suicidal thoughts in the past month. History of bipolar, schizophrenic, ADHD, history of suicide attempt by hanging self. Minimal family and support system, unstable housing. Given the above information, patient would be benefit from restrictive environment for own safety, medication adjustment, and refer patient to outpatient psychiatry services for aftercare upon discharge Hospital course: 04/11/25: Restart home medications. We will check the Depakote level in the next couple of days. VPA level 41.2 low. Not sure if patient has been compliant with meds prior to be admitted. Will add 250mg at HS. Total of 1,250mg ER at HS for mood. Increase the BuSpar from 7.5 daily to 7+ twice a day for anxiety. Plan Patient on 15 minute checks for safety. Admitted to [facility]. CV. Work with treatment team to do collateral and for for of appointments for aftercare. Check Depakote level at appropriate time in 3-5 days. 04/12: Active on unit. Patient reports feeling depressed d/t wanting to return to [place] to be near family and friends. Patient reports he does not want to return to [facility] d/t not liking anyone there . He reports having auditory hallucinations being negative and visual hallucinations of colors . denies SI/HI. Valproic acid level 43.4 on 04/08/25. Continue current tx plan. 04/13: Active on unit. social with peers. Patient reports feeling a little anxious and depressed ; he reports he does not want to return to [facility] and doesn't want to be sober . pt stated, I want to be out there using crack with my friends . T/W and medical social consultant encouraged pt to return to [facility] to maintain sobriety; pt agreeable. denies SI/HI/AH/VH. Valproic acid level to be drawn tomorrow morning. Continue current tx plan. Patient educated on: diagnosis and medication risk/benefits Reason for continued inpatient stay Substantial Risk for: med/psych decompensation Time Spent With Patient Time: Total time managing care of this patient today __20__ minutes.
[2025-04-13 19:10] VITALS: BP 132/80; PULSE 95; RESP 16; TEMP 37.1; O2SAT 97
[2025-04-13] MEDS: Divalproex Sodium ER 250 MG TAB.ER.24H PO (20:32)
[2025-04-14] MEDS: Dextroamphetamine/Amphetamine XR 10 MG CAP.ER.24H 20 MG PO (08:53)
[2025-04-14] MEDS: buPROPion HCl XL 150 MG TAB.ER.24H PO (08:54)
[2025-04-14 10:47] LABS: Ammonia 56 umol/L (13-55)
[2025-04-14 10:55] LABS: Alanine Aminotransferase 21 U/L (0-40); Albumin Level 4.6 g/dL (3.5-5.0); Alkaline Phosphatase 55 U/L (39-117); Aspartate Amino Transferase 21 U/L (5-37); Total Protein 7.8 g/dL (6.5-8.0)
[2025-04-14 10:56] LABS: Alanine Aminotransferase 16 U/L (0-40); Albumin Level 4.6 g/dL (3.5-5.0); Alkaline Phosphatase 55 U/L (39-117); Anion Gap 14 (12-20); Aspartate Amino Transferase 26 U/L (5-37); Blood Urea Nitrogen 19 mg/dL (9-16); Calcium 9.7 mg/dL (8.4-10.2); Carbon Dioxide 24 mmol/L (22-29); Chloride 106 mmol/L (96-108); Cholesterol 209 mg/dL (<200); Creatinine Clr Calc Pharmacy 127.4; Estimated Glomerular Filt Rate > 60; HDL Cholesterol 43 mg/dL (>40); Potassium 4.7 mmol/L (3.3-5.1); Sodium 139 mmol/L (135-145); Total Protein 7.9 g/dL (6.5-8.0); Triglycerides 161 mg/dL (<150)
--- NOTE | 2025-04-14 10:56 | HO.PSYCHPN ---
Subjective Subjective Date of Service: 04/14/25 Reason For Visit: CRISIS Subjective Notes: Conditional Voluntary Interim History: Active on unit. social with peers. Patient reports feeling depressed because I'm going back to [facility] ; denies SI/HI/AH/VH. He reports sleeping well. Valproic acid level 53.1 on 04/14/25. Plan to discharge Friday if continues to improve; pt aware. Continue current tx plan. Medication Compliance: Yes Side effects from medications: No Attending Groups: Yes Mental Status Exam Mental Status Exam Narrative: Pt is alert and oriented; behavior is cooperative and calm; dressed in casual attire; mood is described as a little depressed ; eye contact appropriate; Speech is normal rate, volume and not pressured; thought process is organized; Thought content is on discharge; denies SI/HI/AH/VH. Diagnostics Vital Signs (24Hr): Vital Signs - 24 hr 04/13/25 19:10 Temperature 98.7 F Pulse Rate 95 Respiratory Rate 16 Blood Pressure 132/80 Pulse Oximetry 97 Oxygen Delivery Method Room Air BMI result Body Mass Index 23.6 Labs 04/08/25 16:00 04/08/25 16:00 Labs: Laboratory Results - last 48 hr 04/14/25 10:26 Total Bilirubin 0.3 Direct Bilirubin 0.1 AST 21 ALT 21 Alkaline Phosphatase 55 Ammonia 56 H Total Protein 7.8 Albumin 4.6 Valproic Acid 53.1 Medications Medications Current Medications Acetaminophen (Acetaminophen 325 Mg Tablet) 650 mg PO Q6H PRN PRN Reason: Headache/Pain, Scale 1-10 Al Hydroxide/Mg Hydroxide (Magnesium Hydrox/Alum Hydrox 30 Ml Oral.Susp) 30 ml PO Q6H PRN PRN Reason: Heartburn/Nausea Amphetamine/Dextroamphetamine (Dextroamphetamine/Amphetamine Xr 10 Mg Cap.Er.24h) 20 mg PO DAILY [facility] Last Admin: 04/14/25 08:53 Dose: 20 mg Bupropion HCl (Bupropion Hcl Xl 150 Mg Tab.Er.24h) 150 mg PO DAILY [facility] Last Admin: 04/14/25 08:54 Dose: 150 mg Buspirone HCl (Buspirone Hcl 5 Mg Tablet) 7.5 mg PO BID [facility] Last Admin: 04/14/25 08:52 Dose: 7.5 mg Divalproex Sodium (Divalproex Sodium Er 500 Mg Tab.Er.24h) 1,000 mg PO BEDTIME [facility] Last Admin: 04/13/25 20:32 Dose: 1,000 mg Divalproex Sodium (Divalproex Sodium Er 250 Mg Tab.Er.24h) 250 mg PO BEDTIME [facility] Last Admin: 04/13/25 20:32 Dose: 250 mg Gabapentin (Gabapentin 300 Mg Capsule) 300 mg PO DAILY [facility] Last Admin: 04/14/25 08:52 Dose: 300 mg Hydroxyzine HCl (Hydroxyzine Hcl 25 Mg Tablet) 25 mg PO Q6H PRN PRN Reason: mild anxiety Last Admin: 04/13/25 20:32 Dose: 25 mg Magnesium Hydroxide (Milk Of Magnesia 30 Ml Oral.Susp) 30 ml PO DAILY PRN PRN Reason: Constipation Nicotine Polacrilex (Nicotine Polacrilex 2 Mg Gum) 4 mg BUCCAL Q2H PRN PRN Reason: Nicotine Cravings Olanzapine (Olanzapine 10 Mg Tablet) 20 mg PO BEDTIME [facility] Last Admin: 04/13/25 20:33 Dose: 20 mg Olanzapine (Olanzapine 5 Mg Tablet) 5 mg PO Q4H PRN PRN Reason: agitation Last Admin: 04/13/25 16:39 Dose: 5 mg Trazodone HCl (Trazodone Hcl 50 Mg Tablet) 50 mg PO BEDTIME MRX1 PRN PRN Reason: Insomnia Allergies Allergies Allergy/AdvReac Type Severity Reaction Status Date / Time haloperidol (From Haldol) Allergy Unknown Verified 04/08/25 15:33 quetiapine (From Seroquel) Allergy Unknown Verified 04/08/25 15:33 risperidone (From Risperdal) Allergy Unknown Verified 04/08/25 15:33 Assessment & Plan Assessment & Plan (1) Schizophrenic disorder: Status: Acute Code(s): F20.9 - Schizophrenia, unspecified (2) Bipolar affect, depressed: Status: Acute Code(s): F31.30 - Bipolar disorder, current episode depressed, mild or moderate severity, unspecified (3) ADHD (attention deficit hyperactivity disorder): Status: Acute Code(s): F90.9 - Attention-deficit hyperactivity disorder, unspecified type Plan patient is a 29 years old why [place]rydein[place] speaking male with history of schizophrenic bipolar disorder, ADHD, cocaine/crack use disorder who self presented to [facility] due to concerns SI and hallucinations. Reports increase in depression the past month while at the [facility]. Formulation/clinical reasoning: Increasing in depression/anxiety/and suicidal thoughts in the past month. History of bipolar, schizophrenic, ADHD, history of suicide attempt by hanging self. Minimal family and support system, unstable housing. Given the above information, patient would be benefit from restrictive environment for own safety, medication adjustment, and refer patient to outpatient psychiatry services for aftercare upon discharge Plan: Patient on 15 minute checks for safety. Admitted to [facility]. [facility]. Work with treatment team to do collateral and for for of appointments for aftercare. Check Depakote level at appropriate time in 3-5 days. 04/11/25: Restart home medications. We will check the Depakote level in the next couple of days. VPA level 41.2 low. Not sure if patient has been compliant with meds prior to be admitted. Will add 250mg at HS. Total of 1,250mg ER at HS for mood. Increase the BuSpar from 7.5 daily to 7+ twice a day for anxiety. 04/12: Active on unit. Patient reports feeling depressed d/t wanting to return to [place] to be near family and friends. Patient reports he does not want to return to [facility] d/t not liking anyone there . He reports having auditory hallucinations being negative and visual hallucinations of colors . denies SI/HI. Valproic acid level 43.4 on 04/08/25. Continue current tx plan. 04/13: Active on unit. social with peers. Patient reports feeling a little anxious and depressed ; he reports he does not want to return to [facility] and doesn't want to be sober . pt stated, I want to be out there using crack with my friends . T/W and general lithographic worker encouraged pt to return to [facility] to maintain sobriety; pt agreeable. denies SI/HI/AH/VH. Valproic acid level to be drawn tomorrow morning. Continue current tx plan. 04/14: Active on unit. social with peers. Patient reports feeling depressed because I'm going back to [facility] ; denies SI/HI/AH/VH. He reports sleeping well. Valproic acid level 53.1 on 04/14/25. Plan to discharge Friday if continues to improve; pt aware. Continue current tx plan. Patient educated on: diagnosis, medication risk/benefits and therapeutic strategies Reason for continued inpatient stay Substantial Risk for: med/psych decompensation Time Spent With Patient Time: Total time managing care of this patient today _20___ minutes.
[2025-04-14 11:04] LABS: Hemoglobin A1C 126.4013 umol/L; Total Hemoglobin (HGBA1C) 3975.8646 umol/L
[2025-04-14 19:30] VITALS: BP 115/80; PULSE 99; RESP 16; TEMP 37.1; O2SAT 97
[2025-04-14] MEDS: Divalproex Sodium ER 250 MG TAB.ER.24H PO (20:19)
--- NOTE | 2025-04-15 09:22 | HO.PSYCHPN ---
Subjective Subjective Date of Service: 04/15/25 Reason For Visit: CRISIS Subjective Notes: Conditional Voluntary Interim History: Patient reports feeling alright today and ready to go back to [facility] ; denies SI/HI/AH/VH. Pacing unit hallway. social with select peers. Plan to discharge Friday if continues to improve; pt aware. Continue current tx plan. Medication Compliance: Yes Side effects from medications: No Attending Groups: Intermittent Mental Status Exam Mental Status Exam Narrative: Pt is alert and oriented; behavior is cooperative and calm; dressed in casual attire; mood is described as alright ; eye contact appropriate; Speech is normal rate, volume and not pressured; thought process is organized; Thought content is on discharge; denies SI/HI/AH/VH. Diagnostics Vital Signs (24Hr): Vital Signs - 24 hr 04/14/25 19:30 Temperature 98.7 F Pulse Rate 99 Respiratory Rate 16 Blood Pressure 115/80 Pulse Oximetry 97 Oxygen Delivery Method Room Air BMI result Body Mass Index 23.6 Labs 04/08/25 16:00 04/14/25 10:26 Labs: Laboratory Results - last 48 hr 04/14/25 04/14/25 04/14/25 10:26 10:26 10:26 Sodium 139 Potassium 4.7 D Chloride 106 Carbon Dioxide 24 Anion Gap 14 BUN 19 H Creatinine 0.84 Estim Creat Clear Calc 127.4 Estimated GFR > 60 Random Glucose 116 H Estimat Average Glucose 100 Hemoglobin A1c % 5.1 Calcium 9.7 Total Bilirubin 0.3 0.3 Direct Bilirubin 0.1 AST 26 21 ALT 16 Alkaline Phosphatase Ammonia Total Protein Albumin Triglycerides Cholesterol LDL Cholesterol, Calc HDL Cholesterol Valproic Acid 04/14/25 04/14/25 04/14/25 10:26 10:26 10:26 Sodium Potassium Chloride Carbon Dioxide Anion Gap BUN Creatinine Estim Creat Clear Calc Estimated GFR Random Glucose Estimat Average Glucose Hemoglobin A1c % Calcium Total Bilirubin Direct Bilirubin AST ALT 21 Alkaline Phosphatase 55 55 Ammonia 56 H Total Protein 7.9 7.8 Albumin 4.6 Triglycerides Cholesterol LDL Cholesterol, Calc HDL Cholesterol Valproic Acid 04/14/25 10:26 Sodium Potassium Chloride Carbon Dioxide Anion Gap BUN Creatinine Estim Creat Clear Calc Estimated GFR Random Glucose Estimat Average Glucose Hemoglobin A1c % Calcium Total Bilirubin Direct Bilirubin AST ALT Alkaline Phosphatase Ammonia Total Protein Albumin 4.6 Triglycerides 161 H Cholesterol 209 H LDL Cholesterol, Calc 134 H HDL Cholesterol 43 Valproic Acid 53.1 Medications Medications Current Medications Acetaminophen (Acetaminophen 325 Mg Tablet) 650 mg PO Q6H PRN PRN Reason: Headache/Pain, Scale 1-10 Al Hydroxide/Mg Hydroxide (Magnesium Hydrox/Alum Hydrox 30 Ml Oral.Susp) 30 ml PO Q6H PRN PRN Reason: Heartburn/Nausea Amphetamine/Dextroamphetamine (Dextroamphetamine/Amphetamine Xr 10 Mg Cap.Er.24h) 20 mg PO DAILY [facility] Last Admin: 04/14/25 08:53 Dose: 20 mg Bupropion HCl (Bupropion Hcl Xl 150 Mg Tab.Er.24h) 150 mg PO DAILY [facility] Last Admin: 04/14/25 08:54 Dose: 150 mg Buspirone HCl (Buspirone Hcl 5 Mg Tablet) 7.5 mg PO BID [facility] Last Admin: 04/14/25 20:20 Dose: 7.5 mg Divalproex Sodium (Divalproex Sodium Er 500 Mg Tab.Er.24h) 1,000 mg PO BEDTIME [facility] Last Admin: 04/14/25 20:19 Dose: 1,000 mg Divalproex Sodium (Divalproex Sodium Er 250 Mg Tab.Er.24h) 250 mg PO BEDTIME [facility] Last Admin: 04/14/25 20:19 Dose: 250 mg Gabapentin (Gabapentin 300 Mg Capsule) 300 mg PO DAILY [facility] Last Admin: 04/14/25 08:52 Dose: 300 mg Hydroxyzine HCl (Hydroxyzine Hcl 25 Mg Tablet) 25 mg PO Q6H PRN PRN Reason: mild anxiety Last Admin: 04/14/25 14:33 Dose: 25 mg Magnesium Hydroxide (Milk Of Magnesia 30 Ml Oral.Susp) 30 ml PO DAILY PRN PRN Reason: Constipation Nicotine Polacrilex (Nicotine Polacrilex 2 Mg Gum) 4 mg BUCCAL Q2H PRN PRN Reason: Nicotine Cravings Olanzapine (Olanzapine 10 Mg Tablet) 20 mg PO BEDTIME [facility] Last Admin: 04/14/25 20:20 Dose: 20 mg Olanzapine (Olanzapine 5 Mg Tablet) 5 mg PO Q4H PRN PRN Reason: agitation Last Admin: 04/13/25 16:39 Dose: 5 mg Trazodone HCl (Trazodone Hcl 50 Mg Tablet) 50 mg PO BEDTIME MRX1 PRN PRN Reason: Insomnia Allergies Allergies Allergy/AdvReac Type Severity Reaction Status Date / Time [facility] Allergy Unknown Verified 04/08/25 15:33 quetiapine (From Seroquel) Allergy Unknown Verified 04/08/25 15:33 risperidone (From Risperdal) Allergy Unknown Verified 04/08/25 15:33 Assessment & Plan Assessment & Plan (1) Schizophrenic disorder: Status: Acute Code(s): F20.9 - Schizophrenia, unspecified (2) Bipolar affect, depressed: Status: Acute Code(s): F31.30 - Bipolar disorder, current episode depressed, mild or moderate severity, unspecified (3) ADHD (attention deficit hyperactivity disorder): Status: Acute Code(s): F90.9 - Attention-deficit hyperactivity disorder, unspecified type Plan patient is a 29 years old why Spanish speaking male with history of schizophrenic bipolar disorder, ADHD, cocaine/crack use disorder who self presented to [facility] [place] [facility] due to concerns SI and hallucinations. Reports increase in depression the past month while at the [facility]. Formulation/clinical reasoning: Increasing in depression/anxiety/and suicidal thoughts in the past month. History of bipolar, schizophrenic, ADHD, history of suicide attempt by hanging self. Minimal family and support system, unstable housing. Given the above information, patient would be benefit from restrictive environment for own safety, medication adjustment, and refer patient to outpatient psychiatry services for aftercare upon discharge Plan: Patient on 15 minute checks for safety. Admitted to . CV. Work with treatment team to do collateral and for for of appointments for aftercare. Check Depakote level at appropriate time in 3-5 days. 04/11/25: Restart home medications. We will check the Depakote level in the next couple of days. VPA level 41.2 low. Not sure if patient has been compliant with meds prior to be admitted. Will add 250mg at HS. Total of 1,250mg ER at HS for mood. Increase the BuSpar from 7.5 daily to 7+ twice a day for anxiety. 04/12: Active on unit. Patient reports feeling depressed d/t wanting to return to [place] to be near family and friends. Patient reports he does not want to return to [facility] d/t not liking anyone there . He reports having auditory hallucinations being negative and visual hallucinations of colors . denies SI/HI. Valproic acid level 43.4 on 04/08/25. Continue current tx plan. 04/13: Active on unit. social with peers. Patient reports feeling a little anxious and depressed ; he reports he does not want to return to [facility] and doesn't want to be sober . pt stated, I want to be out there using crack with my friends . T/W and social science analyst encouraged pt to return to [facility] to maintain sobriety; pt agreeable. denies SI/HI/AH/VH. Valproic acid level to be drawn tomorrow morning. Continue current tx plan. 04/14: Active on unit. social with peers. Patient reports feeling depressed because I'm going back to [facility] ; denies SI/HI/AH/VH. He reports sleeping well. Valproic acid level 53.1 on 04/14/25. Plan to discharge Friday if continues to improve; pt aware. Continue current tx plan. 04/15: Patient reports feeling alright today and ready to go back to [facility] ; denies SI/HI/AH/VH. Pacing unit hallway. social with select peers. Plan to discharge Friday if continues to improve; pt aware. Continue current tx plan. Patient educated on: diagnosis and medication risk/benefits Reason for continued inpatient stay Substantial Risk for: med/psych decompensation Time Spent With Patient Time: Total time managing care of this patient today _20___ minutes.
[2025-04-15] MEDS: buPROPion HCl XL 150 MG TAB.ER.24H PO (09:25)
[2025-04-15] MEDS: Dextroamphetamine/Amphetamine XR 10 MG CAP.ER.24H 20 MG PO (09:26)
[2025-04-15 20:00] VITALS: BP 138/78; PULSE 97; RESP 16; TEMP 36.8; O2SAT 98
[2025-04-15] MEDS: Divalproex Sodium ER 250 MG TAB.ER.24H PO (20:57)
--- NOTE | 2025-04-16 07:55 | P.PNPSI_ITS ---
Subjective Subjective Date of Service: 04/16/25 Reason For Visit: CRISIS Subjective Notes: Conditional Voluntary Interim History: Patient reports feeling fine and ready to go back to [facility]; denies SI/HI/AH/VH. In milieu without issue and social. No med concerns. Sleep ok. Medication Compliance: Yes Side effects from medications: No Attending Groups: Yes Review of Systems Acute medical concerns: No Review of Systems Review of Systems unremarkable Mental Status Exam Mental Status Exam Narrative: Pt is alert and oriented; behavior is cooperative and calm; dressed in casual attire; mood is described as fine ; eye contact appropriate; Speech is normal rate, volume and not pressured; thought process is organized; Thought content is on discharge; denies SI/HI/AH/VH. Diagnostics Vital Signs (24Hr): Vital Signs - 24 hr 04/15/25 20:00 Temperature 98.3 F Pulse Rate 97 Respiratory Rate 16 Blood Pressure 138/78 Pulse Oximetry 98 Oxygen Delivery Method Room Air BMI result Body Mass Index 23.6 Labs 04/08/25 16:00 04/14/25 10:26 Labs: Laboratory Results - last 48 hr 04/14/25 04/14/25 04/14/25 10:26 10:26 10:26 Sodium 139 Potassium 4.7 D Chloride 106 Carbon Dioxide 24 Anion Gap 14 BUN 19 H Creatinine 0.84 Estim Creat Clear Calc 127.4 Estimated GFR > 60 Random Glucose 116 H Estimat Average Glucose 100 Hemoglobin A1c % 5.1 Calcium 9.7 Total Bilirubin 0.3 0.3 Direct Bilirubin 0.1 AST 26 21 ALT 16 Alkaline Phosphatase Ammonia Total Protein Albumin Triglycerides Cholesterol LDL Cholesterol, Calc HDL Cholesterol Valproic Acid 04/14/25 04/14/25 04/14/25 10:26 10:26 10:26 Sodium Potassium Chloride Carbon Dioxide Anion Gap BUN Creatinine Estim Creat Clear Calc Estimated GFR Random Glucose Estimat Average Glucose Hemoglobin A1c % Calcium Total Bilirubin Direct Bilirubin AST ALT 21 Alkaline Phosphatase 55 55 Ammonia 56 H Total Protein 7.9 7.8 Albumin 4.6 Triglycerides Cholesterol LDL Cholesterol, Calc HDL Cholesterol Valproic Acid 04/14/25 10:26 Sodium Potassium Chloride Carbon Dioxide Anion Gap BUN Creatinine Estim Creat Clear Calc Estimated GFR Random Glucose Estimat Average Glucose Hemoglobin A1c % Calcium Total Bilirubin Direct Bilirubin AST ALT Alkaline Phosphatase Ammonia Total Protein Albumin 4.6 Triglycerides 161 H Cholesterol 209 H LDL Cholesterol, Calc 134 H HDL Cholesterol 43 Valproic Acid 53.1 Medications Medications Current Medications Acetaminophen (Acetaminophen 325 Mg Tablet) 650 mg PO Q6H PRN PRN Reason: Headache/Pain, Scale 1-10 Al Hydroxide/Mg Hydroxide (Magnesium Hydrox/Alum Hydrox 30 Ml Oral.Susp) 30 ml PO Q6H PRN PRN Reason: Heartburn/Nausea Amphetamine/Dextroamphetamine (Dextroamphetamine/Amphetamine Xr 10 Mg Cap.Er.24h) 20 mg PO DAILY [facility] Last Admin: 04/15/25 09:26 Dose: 20 mg Bupropion HCl (Bupropion Hcl Xl 150 Mg Tab.Er.24h) 150 mg PO DAILY [facility] Last Admin: 04/15/25 09:25 Dose: 150 mg Buspirone HCl (Buspirone Hcl 5 Mg Tablet) 7.5 mg PO BID [facility] Last Admin: 04/15/25 20:55 Dose: 7.5 mg Divalproex Sodium (Divalproex Sodium Er 500 Mg Tab.Er.24h) 1,000 mg PO BEDTIME [facility] Last Admin: 04/15/25 20:56 Dose: 1,000 mg Divalproex Sodium (Divalproex Sodium Er 250 Mg Tab.Er.24h) 250 mg PO BEDTIME [facility] Last Admin: 04/15/25 20:57 Dose: 250 mg Gabapentin (Gabapentin 300 Mg Capsule) 300 mg PO DAILY [facility] Last Admin: 04/15/25 09:26 Dose: 300 mg Hydroxyzine HCl (Hydroxyzine Hcl 25 Mg Tablet) 25 mg PO Q6H PRN PRN Reason: mild anxiety Last Admin: 04/15/25 16:18 Dose: 25 mg Magnesium Hydroxide (Milk Of Magnesia 30 Ml Oral.Susp) 30 ml PO DAILY PRN PRN Reason: Constipation Nicotine Polacrilex (Nicotine Polacrilex 2 Mg Gum) 4 mg BUCCAL Q2H PRN PRN Reason: Nicotine Cravings Olanzapine (Olanzapine 10 Mg Tablet) 20 mg PO BEDTIME [facility] Last Admin: 04/15/25 20:56 Dose: 20 mg Olanzapine (Olanzapine 5 Mg Tablet) 5 mg PO Q4H PRN PRN Reason: agitation Last Admin: 04/15/25 16:18 Dose: 5 mg Trazodone HCl (Trazodone Hcl 50 Mg Tablet) 50 mg PO BEDTIME MRX1 PRN PRN Reason: Insomnia Allergies Allergies Allergy/AdvReac Type Severity Reaction Status Date / Time haloperidol (From Haldol) Allergy Unknown Verified 04/08/25 15:33 quetiapine (From Seroquel) Allergy Unknown Verified 04/08/25 15:33 risperidone (From Risperdal) Allergy Unknown Verified 04/08/25 15:33 Assessment & Plan Assessment & Plan (1) Schizophrenic disorder: Status: Acute Code(s): F20.9 - Schizophrenia, unspecified (2) Bipolar affect, depressed: Status: Acute Code(s): F31.30 - Bipolar disorder, current episode depressed, mild or moderate severity, unspecified (3) ADHD (attention deficit hyperactivity disorder): Status: Acute Code(s): F90.9 - Attention-deficit hyperactivity disorder, unspecified type Plan patient is a 29 years old why Kiswahili speaking male with history of schizophrenic bipolar disorder, ADHD, cocaine/crack use disorder who self presented to [facility] due to concerns SI and hallucinations. Reports increase in depression the past month while at the [facility]. Formulation/clinical reasoning: Increasing in depression/anxiety/and suicidal thoughts in the past month. History of bipolar, schizophrenic, ADHD, history of suicide attempt by hanging self. Minimal family and support system, unstable housing. Given the above information, patient would be benefit from restrictive environment for own safety, medication adjustment, and refer patient to outpatient psychiatry services for aftercare upon discharge Plan: Patient on 15 minute checks for safety. Admitted to . CV. Work with treatment team to do collateral and for for of appointments for aftercare. Check Depakote level at appropriate time in 3-5 days. 04/11/25: Restart home medications. We will check the Depakote level in the next couple of days. VPA level 41.2 low. Not sure if patient has been compliant with meds prior to be admitted. Will add 250mg at HS. Total of 1,250mg ER at HS for mood. Increase the BuSpar from 7.5 daily to 7+ twice a day for anxiety. 04/12: Active on unit. Patient reports feeling depressed d/t wanting to return to [place] to be near family and friends. Patient reports he does not want to return to [facility] d/t not liking anyone there . He reports having auditory hallucinations being negative and visual hallucinations of colors . denies SI/HI. Valproic acid level 43.4 on 04/08/25. Continue current tx plan. 04/13: Active on unit. social with peers. Patient reports feeling a little anxious and depressed ; he reports he does not want to return to [facility] and doesn't want to be sober . pt stated, I want to be out there using crack with my friends . T/W and social and political studies professor encouraged pt to return to [facility] to maintain sobriety; pt agreeable. denies SI/HI/AH/VH. Valproic acid level to be drawn tomorrow morning. Continue current tx plan. 04/14: Active on unit. social with peers. Patient reports feeling depressed because I'm going back to [facility] ; denies SI/HI/AH/VH. He reports sleeping well. Valproic acid level 53.1 on 04/14/25. Plan to discharge Friday if continues to improve; pt aware. Continue current tx plan. 04/15: Patient reports feeling alright today and ready to go back to [facility] ; denies SI/HI/AH/VH. Pacing unit hallway. social with select peers. Plan to discharge Friday if continues to improve; pt aware. Continue current tx plan. 04/16: no changes.[place] planning for [facility] after weekend. Reason for continued inpatient stay Substantial Risk for: rapid decompensation Time Spent With Patient Time: Total time managing care of this patient today ____ minutes.
[2025-04-16] MEDS: Dextroamphetamine/Amphetamine XR 10 MG CAP.ER.24H 20 MG PO (08:48)
[2025-04-16] MEDS: buPROPion HCl XL 150 MG TAB.ER.24H PO (08:49)
[2025-04-16 20:00] VITALS: BP 135/72; PULSE 100; RESP 18; TEMP 36.9; O2SAT 97
[2025-04-16] MEDS: Divalproex Sodium ER 250 MG TAB.ER.24H PO (20:11)
[2025-04-17 07:30] VITALS: BP 106/68; PULSE 73; RESP 17; TEMP 35.9; O2SAT 96
[2025-04-17] MEDS: Dextroamphetamine/Amphetamine XR 10 MG CAP.ER.24H 20 MG PO (09:44)
[2025-04-17] MEDS: buPROPion HCl XL 150 MG TAB.ER.24H PO (09:44)
--- NOTE | 2025-04-17 10:28 | P.PNPSI_ITS ---
Subjective Subjective Date of Service: 04/17/25 Reason For Visit: CRISIS Interim History: Patient reports feeling ready ref discharge planning and go back to [facility]; denies SI/HI/AH/VH. In milieu without issue and social. No med concerns. Sleep ok. Review of Systems Review of Systems unremarkable Mental Status Exam Mental Status Exam Narrative: Pt is alert and oriented; behavior is cooperative and calm; dressed in casual attire; mood is described as good ; eye contact appropriate; Speech is normal rate, volume and not pressured; thought process is organized; Thought content is on discharge; denies SI/HI/AH/VH. Diagnostics Vital Signs (24Hr): Vital Signs - 24 hr 04/16/25 20:00 04/17/25 07:30 Temperature 98.5 F 96.6 F L Pulse Rate 100 73 Respiratory Rate 18 17 Blood Pressure 135/72 106/68 Pulse Oximetry 97 96 Oxygen Delivery Method Room Air Room Air BMI result Body Mass Index 23.6 Labs 04/08/25 16:00 04/14/25 10:26 Medications Medications Current Medications Acetaminophen (Acetaminophen 325 Mg Tablet) 650 mg PO Q6H PRN PRN Reason: Headache/Pain, Scale 1-10 Al Hydroxide/Mg Hydroxide (Magnesium Hydrox/Alum Hydrox 30 Ml Oral.Susp) 30 ml PO Q6H PRN PRN Reason: Heartburn/Nausea Amphetamine/Dextroamphetamine (Dextroamphetamine/Amphetamine Xr 10 Mg Cap.Er.24h) 20 mg PO DAILY [facility] Last Admin: 04/17/25 09:44 Dose: 20 mg Bupropion HCl (Bupropion Hcl Xl 150 Mg Tab.Er.24h) 150 mg PO DAILY [facility] Last Admin: 04/17/25 09:44 Dose: 150 mg Buspirone HCl (Buspirone Hcl 5 Mg Tablet) 7.5 mg PO BID [facility] Last Admin: 04/17/25 09:45 Dose: 7.5 mg Divalproex Sodium (Divalproex Sodium Er 500 Mg Tab.Er.24h) 1,000 mg PO BEDTIME [facility] Last Admin: 04/16/25 20:11 Dose: 1,000 mg Divalproex Sodium (Divalproex Sodium Er 250 Mg Tab.Er.24h) 250 mg PO BEDTIME [facility] Last Admin: 04/16/25 20:11 Dose: 250 mg Gabapentin (Gabapentin 300 Mg Capsule) 300 mg PO DAILY [facility] Last Admin: 04/17/25 09:44 Dose: 300 mg Hydroxyzine HCl (Hydroxyzine Hcl 25 Mg Tablet) 25 mg PO Q6H PRN PRN Reason: mild anxiety Last Admin: 04/16/25 17:49 Dose: 25 mg Magnesium Hydroxide (Milk Of Magnesia 30 Ml Oral.Susp) 30 ml PO DAILY PRN PRN Reason: Constipation Nicotine Polacrilex (Nicotine Polacrilex 2 Mg Gum) 4 mg BUCCAL Q2H PRN PRN Reason: Nicotine Cravings Olanzapine (Olanzapine 10 Mg Tablet) 20 mg PO BEDTIME [facility] Last Admin: 04/16/25 20:12 Dose: 20 mg Olanzapine (Olanzapine 5 Mg Tablet) 5 mg PO Q4H PRN PRN Reason: agitation Last Admin: 04/16/25 17:49 Dose: 5 mg Trazodone HCl (Trazodone Hcl 50 Mg Tablet) 50 mg PO BEDTIME MRX1 PRN PRN Reason: Insomnia Allergies Allergies Allergy/AdvReac Type Severity Reaction Status Date / Time haloperidol (From Haldol) Allergy Unknown Verified 04/08/25 15:33 quetiapine (From Seroquel) Allergy Unknown Verified 04/08/25 15:33 risperidone (From Risperdal) Allergy Unknown Verified 04/08/25 15:33 Assessment & Plan Assessment & Plan (1) Schizophrenic disorder: Status: Acute Code(s): F20.9 - Schizophrenia, unspecified (2) Bipolar affect, depressed: Status: Acute Code(s): F31.30 - Bipolar disorder, current episode depressed, mild or moderate severity, unspecified (3) ADHD (attention deficit hyperactivity disorder): Status: Acute Code(s): F90.9 - Attention-deficit hyperactivity disorder, unspecified type Plan patient is a 29 years old why Divehi speaking male with history of schizophrenic bipolar disorder, ADHD, cocaine/crack use disorder who self presented to [facility] due to concerns SI and hallucinations. Reports increase in depression the past month while at the [facility]. Formulation/clinical reasoning: Increasing in depression/anxiety/and suicidal thoughts in the past month. History of bipolar, schizophrenic, ADHD, history of suicide attempt by hanging self. Minimal family and support system, unstable housing. Given the above information, patient would be benefit from restrictive environment for own safety, medication adjustment, and refer patient to outpatient psychiatry services for aftercare upon discharge Plan: Patient on 15 minute checks for safety. Admitted to [facility]. CV. Work with treatment team to do collateral and for for of appointments for aftercare. Check Depakote level at appropriate time in 3-5 days. 04/11/25: Restart home medications. We will check the Depakote level in the next couple of days. VPA level 41.2 low. Not sure if patient has been compliant with meds prior to be admitted. Will add 250mg at HS. Total of 1,250mg ER at HS for mood. Increase the BuSpar from 7.5 daily to 7+ twice a day for anxiety. 04/12: Active on unit. Patient reports feeling depressed d/t wanting to return to [place] to be near family and friends. Patient reports he does not want to return to [facility] d/t not liking anyone there . He reports having auditory hallucinations being negative and visual hallucinations of colors . denies SI/HI. Valproic acid level 43.4 on 04/08/25. Continue current tx plan. 04/13: Active on unit. social with peers. Patient reports feeling a little anxious and depressed ; he reports he does not want to return to [facility] and doesn't want to be sober . pt stated, I want to be out there using crack with my friends . T/W and social sciences research scientist encouraged pt to return to [facility] to maintain sobriety; pt agreeable. denies SI/HI/AH/VH. Valproic acid level to be drawn tomorrow morning. Continue current tx plan. 04/14: Active on unit. social with peers. Patient reports feeling depressed because I'm going back to [facility] ; denies SI/HI/AH/VH. He reports sleeping well. Valproic acid level 53.1 on 04/14/25. Plan to discharge Friday if continues to improve; pt aware. Continue current tx plan. 04/15: Patient reports feeling alright today and ready to go back to [facility] ; denies SI/HI/AH/VH. Pacing unit hallway. social with select peers. Plan to discharge Friday if continues to improve; pt aware. Continue current tx plan. 04/16: no changes.[place] planning for [place] [facility] after weekend. 04/17: no changes Reason for continued inpatient stay Substantial Risk for: rapid decompensation Time Spent With Patient Time: Total time managing care of this patient today ____ minutes.
[2025-04-17 20:00] VITALS: BP 119/57; PULSE 84; RESP 18; TEMP 36.9; O2SAT 97
[2025-04-17] MEDS: Divalproex Sodium ER 250 MG TAB.ER.24H PO (20:47)
[2025-04-18 08:42] VITALS: BP 118/64; PULSE 94; RESP 16; TEMP 36.8; O2SAT 97
[2025-04-18] MEDS: Dextroamphetamine/Amphetamine XR 10 MG CAP.ER.24H 20 MG PO (08:43)
[2025-04-18] MEDS: buPROPion HCl XL 150 MG TAB.ER.24H PO (08:44)
--- NOTE | 2025-04-18 09:38 | P.DS_ITS ---
DS: Providers Provider Date of Service: 04/18/25 Date of admission: 04/11/25 13:46 Date of discharge: 04/18/25 Primary care physician: None Physician Admitting clinician: Stacey Fermin Attending physician on admission: Juan Jose Boothe Attending physician on discharge: Juan Jose Boothe Discharging clinician: Rita Bartlett DS: Diagnosis Discharge Diagnosis (1) Schizophrenic disorder: Status: Acute (2) Bipolar affect, depressed: Status: Acute (3) ADHD (attention deficit hyperactivity disorder): Status: Acute DS: Medications Discharge Medications Home Medications: Home Medications ?Medication ?Instructions ?Recorded ?Confirmed olanzapine 20 mg tablet 20 mg PO BEDTIME 04/08/25 bupropion HCl 150 mg 24 hr tablet, 150 mg PO DAILY 04/09/25 extended release buspirone 7.5 mg tablet 7.5 mg PO QAM 04/09/2504/09 dextroamphetamine-amphetamine ER 20 mg PO QAM 04/09/25 04/09/25 20 mg 24hr capsule,extend release (Adderall XR) divalproex 500 mg tablet,extended 1,000 mg PO BEDTIME 04/09/25 04/09/25 release 24 hr (Depakote ER) gabapentin 300 mg capsule 300 mg PO QAM 04/09/2504/09 Mental Status Exam Mental Status Exam Narrative: Pt is alert and oriented; behavior is cooperative and calm; dressed in casual attire; mood is described as good ; eye contact appropriate; Speech is normal rate, volume and not pressured; thought process is organized; Thought content is on discharge; denies SI/HI/AH/VH. Data Data Completed and Pending Completed studies during hospitalization [Text1]: 04/11/25 04/14/25 04/14/25 10:39 10:26 10:26 Sodium 139 Potassium 4.7 D Chloride 106 Carbon Dioxide 24 Anion Gap 14 BUN 19 H Creatinine 0.84 Estim Creat Clear Calc 127.4 Estimated GFR > 60 Random Glucose 116 H Estimat Average Glucose 100 Hemoglobin A1c % 5.1 Calcium 9.7 Total Bilirubin 0.3 0.3 Direct Bilirubin 0.1 AST 26 ALT Alkaline Phosphatase Ammonia Total Protein Albumin Triglycerides Cholesterol LDL Cholesterol, Calc HDL Cholesterol Urine Color Yellow Urine Appearance Clear Urine pH 6.5 Ur Specific [place] 1.025 Urine Protein Negative Urine Glucose (UA) Negative Urine Ketones Trace Urine Blood Negative Urine Nitrite Negative Ur Leukocyte Esterase Negative Valproic Acid 04/14/25 04/14/25 04/14/25 10:26 10:26 10:26 Sodium Potassium Chloride Carbon Dioxide Anion Gap BUN Creatinine Estim Creat Clear Calc Estimated GFR Random Glucose Estimat Average Glucose Hemoglobin A1c % Calcium Total Bilirubin Direct Bilirubin AST 21 ALT 16 21 Alkaline Phosphatase 55 55 Ammonia 56 H Total Protein 7.9 Albumin Triglycerides Cholesterol LDL Cholesterol, Calc HDL Cholesterol Urine Color Urine Appearance Urine pH Ur Specific [place] Urine Protein Urine Glucose (UA) Urine Ketones Urine Blood Urine Nitrite Ur Leukocyte Esterase Valproic Acid 04/14/25 04/14/25 10:26 10:26 Sodium Potassium Chloride Carbon Dioxide Anion Gap BUN Creatinine Estim Creat Clear Calc Estimated GFR Random Glucose Estimat Average Glucose Hemoglobin A1c % Calcium Total Bilirubin Direct Bilirubin AST ALT Alkaline Phosphatase Ammonia Total Protein 7.8 Albumin 4.6 4.6 Triglycerides 161 H Cholesterol 209 H LDL Cholesterol, Calc 134 H HDL Cholesterol 43 Urine Color Urine Appearance Urine pH Ur Specific [place] Urine Protein Urine Glucose (UA) Urine Ketones Urine Blood Urine Nitrite Ur Leukocyte Esterase Valproic Acid 53.1 DS: Summary Hospital Course Hospital Course: Per care team notes, patient is a 29 years old why Omani speaking male with history of schizophrenic bipolar disorder, ADHD, cocaine/crack use DO who self presented to [facility] due to concerns SI and hallucinations. Reports increase in depression the past month while at the [facility]. On admission to [facility], patient reports main reason brought him here is suicidal thoughts . Denies plan or intention. Reports everything built up in the past month, increased anxiety and increased aggravated. Reported he has been staying with his friends but preferred to go back to [place] where he has friends and family in the area. Denies SI/SIB/HI//AVH. Denied history of hallucinations, reports history of suicidal thoughts history without plan or intent to harm himself. Reports wants suicide attempt history when he was 14 years old as he tried to hang himself when he was in the skilled nursing and was stopped. Reports sleep and appetite has been good. Mood is alright . Reports depression a 5/10. He is incongruent with his mood, denies anxiety at 1st and then when asking about the goals to work on whle he is here, he reports wanted to work on depression and anxiety. He also wants to get medication adjustment. Denies any medical condition, denies surgical history. Denies trauma history. History of crack use but not currently, last use was 9 months ago. Smoking mar nylauana daily but also stopped it for 9 months. He was not sure if he smokes cigarettes. No symptoms of withdrawal on any substances. Denies alcohol use. History of a lot of admission in the past, with last admission was a year ago, unsure where he is was admitted and for what reason I do not remember . Denies PHP, denies detox history. Reports history of ADHD, bipolar, and schizophrenic. He is depressed, underlying irritability, but engageable, somewhat guarded. Do not appear to be psychotic, do not make any delusional paranoid statements. No safety concerns at this current time, he is open for treatment, and he wants help. patient is a 29 years old why Omani speaking male with history of schizophrenic bipolar disorder, ADHD, cocaine/crack use disorder who self presented to [facility] due to concerns SI and hallucinations. Reports increase in depression the past month while at the [facility]. Formulation/clinical reasoning: Increasing in depression/anxiety/and suicidal thoughts in the past month. History of bipolar, schizophrenic, ADHD, history of suicide attempt by hanging self. Minimal family and support system, unstable housing. Given the above information, patient would be benefit from restrictive environment for own safety, medication adjustment, and refer patient to outpatient psychiatry services for aftercare upon discharge Plan: Patient on 15 minute checks for safety. Admitted to [facility]. CV. Work with treatment team to do collateral and for for of appointments for aftercare. Check Depakote level at appropriate time in 3-5 days. Restart home medications. We will check the Depakote level in the next couple of days. VPA level 41.2 low. Not sure if patient has been compliant with meds prior to be admitted. Will add 250mg at HS. Total of 1,250mg ER at HS for mood. Increase the BuSpar from 7.5 daily to 7+ twice a day for anxiety. Active on unit. Patient reports feeling depressed d/t wanting to return to [place] to be near family and friends. Patient reports he does not want to return to [facility] d/t not liking anyone there . He reports having auditory hallucinations being negative and visual hallucinations of colors . denies SI/HI. Valproic acid level 43.4 on 04/08/25. Continue current tx plan. Active on unit. social with peers. Patient reports feeling a little anxious and depressed ; he reports he does not want to return to [place] and doesn't want to be sober . pt stated, I want to be out there using crack with my friends . T/W and social staff worker encouraged pt to return to [facility] to maintain sobriety; pt agreeable. denies SI/HI/AH/VH. Valproic acid level to be drawn tomorrow morning. Continue current tx plan. Active on unit. social with peers. Patient reports feeling depressed because I'm going back to [facility] ; denies SI/HI/AH/VH. He reports sleeping well. Valproic acid level 53.1 on 04/14/25. Plan to discharge Friday if continues to improve; pt aware. Continue current tx plan. Patient reports feeling alright today and ready to go back to [facility] ; denies SI/HI/AH/VH. Pacing unit hallway. social with select peers. Plan to discharge Friday if continues to improve; pt aware. Continue current tx plan. no changes.dispo planning for [place] [facility] after weekend. Patient reports feeling good and ready for discharge; denies any issues at this time. denies SI/HI/VH/AH. Patient reports he plans on following up with his outpatient providers. Status at Discharge Cognitive/behavioral status at discharge: Patient has insight and demonstrates good judgment in terms of wanting to pursue treatment. Patient has a safety plan that includes presenting to the closest ER or calling 911 if feeling unsafe. Functional status at discharge: independent ambulation Overall status at discharge: patient is back to baseline Time Spent with Patient Time attestation: Total time managing care of this patient today _20___ minutes. Time spent: Less than 30 minutes Discharge Plan Discharge Anticipated Discharge Date/Time: 04/18/25 12:30 Patient Disposition: Home, Self-Care Discharge Diagnosis: Schizophrenia Referrals: [facility] [Provider Group] - 1 Week Referral Note: 04-14-25 [facility] was added to patients chart. Please call [phone] to schedule a follow up appt within 7-10 days of discharge. No PCP or release on file. Discharge Medications: New buspirone 7.5 mg tablet 7.5 mg PO BID 30 Days Qty: 60 0RF divalproex 250 mg Tablet Extended Release 24 Hr 250 mg PO BEDTIME 30 Days Qty: 30 0RF Continued olanzapine 20 mg Tablet 20 mg PO BEDTIME dextroamphetamine-amphetamine [Adderall XR] 20 mg Capsule,Extended Release 24hr 20 mg PO QAM divalproex [Depakote ER] 500 mg Tablet Extended Release 24 Hr 1,000 mg PO BEDTIME gabapentin 300 mg Capsule 300 mg PO QAM bupropion HCl 150 mg Tablet Extended Release 24 Hr 150 mg PO DAILY Discontinued buspirone 7.5 mg Tablet 7.5 mg PO QAM Discharge Orders: Discharge Order (Routine); Ordered 04/18/25 Ordered By: Rita Bartlett Diet: Regular diet Activity on Discharge: As tolerated Stand Alone Forms: Patient Portal Discharge page, Community Support Print Language: Omani Care Plan Goals: Maintain mood and safe behaviors Take medications as prescribed Continue to pursue sobriety Practice coping skills Continue with outpatient providers and reach out to them as needed Health Concerns: Mood stability and behaviors Sobriety Plan of Treatment: Follow up with your PCP, psychiatric provider and other outpatient providers regarding above concerns Take medications as prescribed Assessment: Patient has insight and demonstrates good judgment in terms of wanting to pursue treatment. Patient has a safety plan that includes presenting to the closest ER or calling 911 if feeling unsafe. Discharge Date/Time: 04/18/25 11:15
--- NOTE | 2025-04-18 11:30 | PC.NURSE ---
Patient easily engaged. Reports mood is stable, denies depression or anxiety. Denies SI/HI plan or intent. Denies perceptual disturbances, no overt psychosis or expressed delusions. Planning to return to [facility]. Discharge instructions provided to patient, reviewed, reports understanding. Reports he has provider at [facility] he will follow up with. Information provided for PCP through [facility] if interested. Reported understanding. Discharge medications reviewed reports understanding. All belongings taken with patient. Crisis numbers provided to patient.
== END 2025-04-18 11:15 | disposition home or self-care (01) | DRG 750 ==
LOC: HO.ED 04-11 13:49 → HO.PADLT16 04-11 14:19
PROVIDERS: Nurse Practitioner Family; Admitting Provider Registered Nurse; Emergency Provider Emergency Medicine; Responsible Provider Registered Nurse; Visit Provider Psychiatry & Neurology Psychiatry
DX: F20.9 Schizophrenia, unspecified (principal); R45.851 Suicidal ideations; F31.30 Bipolar disorder, current episode depressed, mild or moderate severity, unspecified; F90.9 Attention-deficit hyperactivity disorder, unspecified type; Z79.899 Other long term (current) drug therapy
CPT/HCPCS: 36415; 80048; 80053; 80061; 80076; 80143; 80164; 80179; 80307; 81003; 82140; 83036; 85025; 93005; 99285; S9485

== ENCOUNTER → 2025-04-11 09:51 | Outpatient (BNV) | payer OTHER, SELFPAY | PROVIDERS: Emergency Provider Emergency Medicine; Visit Provider Internal Medicine Cardiovascular Disease | DX: Z13.6 Encounter for screening for cardiovascular disorders (principal) | CPT/HCPCS: 93010 ==

== ENCOUNTER → 2025-04-11 13:46 | Outpatient (BNV) | payer OTHER, SELFPAY | PROVIDERS: Admitting Provider Registered Nurse; Emergency Provider Emergency Medicine; Responsible Provider Registered Nurse; Visit Provider Nurse Practitioner Psychiatric/Mental Health | DX: F31.32 Bipolar disorder, current episode depressed, moderate (principal); F20.9 Schizophrenia, unspecified; F90.9 Attention-deficit hyperactivity disorder, unspecified type | CPT/HCPCS: 99231; 99232 ==

== ENCOUNTER 2025-05-09 14:22 | Inpatient (IN) | payer OTHER, SELFPAY ==
[2025-05-09 14:40] VITALS: BP 123/79; PULSE 114; RESP 18; TEMP 36.9; O2SAT 97; BMI 23.6
--- NOTE | 2025-05-09 14:40 | ED.PSYCH ---
HPI - Psych General Chief Complaint: Psychiatric Symptoms Stated Complaint: SI, hearing voices Time Seen by Provider: 05/09/25 15:12 Source: patient Mode of arrival: ambulatory Limitations: no limitations History of Present Illness ED Provider: DC SHEPPARD PA-C HPI Narrative: 29-year-old male with pmhx significant for ADHD, substance abuse in recovery, and bipolar disorder presents to the ED today with RN [facility] for evaluation of increased suicidal ideation with plan to cut or hang himself x 2 days. Reports thoughts of harming himself with command auditory hallucinations telling him I would be better off . Admits to significantly depressed mood for he does not want to wake up in the morning. Denies VH/TH. Reports compliance with all home medications. He denies attempting to overdose on any of his medications. Denies any illicit substance use or EtOH consumption. Denies any physical complaints at present. Related Data Home Medications ?Medication ?Instructions ?Recorded ?Confirmed olanzapine 20 mg tablet 20 mg PO BEDTIME 04/08/25 05/09/25 bupropion HCl 150 mg 24 hr tablet, 150 mg PO DAILY 04/09/25 05/09/25 extended release divalproex 500 mg tablet,extended 1,000 mg PO BEDTIME 04/09/25 05/09/25 release 24 hr (Depakote ER) gabapentin 300 mg capsule 300 mg PO QAM 04/09/25 05/09/25 dextroamphetamine-amphetamine ER 1 cap PO DAILY 05/09/25 05/09/25 30 mg 24hr capsule,extend release (Adderall XR) Previous Rx's ?Medication ?Instructions ?Recorded buspirone 7.5 mg tablet 7.5 mg PO BID 30 days #60 tabs 04/18/25 divalproex 250 mg tablet,extended 250 mg PO BEDTIME 30 days #30 tabs 04/18/25 release 24 hr Allergies Allergy/AdvReac Type Severity Reaction Status Date / Time haloperidol (From Haldol) Allergy Unknown Verified 05/09/25 14:42 quetiapine (From Seroquel) Allergy Unknown Verified 05/09/25 14:42 risperidone (From Risperdal) Allergy Unknown Verified 05/09/25 14:42 Review of Systems Review of Systems: Yes all other systems are reviewed and are negative PMFSH Past Medical History Attestation statement: The following information was validated with the patient. Source: old records reviewed and nursing notes reviewed Medical History Bipolar affect, depressed Social History Social History Household Members: Other Housing: House Housing Other:: [facility] Do you presently have visiting nurse or other home services: Yes ([facility]) Patient Tobacco Use Status: Never used Tobacco Smoked in Last 30 Days: No Use of substances other than those prescribed or required for medical reasons: No Advance Directives: No Advance Directives Information Provided: No service: No Sexual orientation: Straight/Heterosexual Physical Exam Vital Signs: Vital Signs: Last Vital Signs Temp 97.8 F 05/10/25 06:29 Pulse 78 05/10/25 06:29 Resp 16 05/10/25 06:29 BP 111/64 05/10/25 06:29 Pulse Ox 99 05/10/25 06:29 O2 Del Method Room Air 05/10/25 06:29 BMI result Body Mass Index 23.6 tachycardic, vitals are wnl General: Well appearing, in no acute distress. Skin: Warm, dry, intact. No rashes or lesions. Head: Normocephalic, atraumatic. EENT: Hearing is intact b/l. Conjunctiva clear. Sclera is anicteric. PERRLA. EOM intact. Moist mucous membranes.? Cardiac: Chest wall symmetric Lungs: Normal respiratory effort without accessory muscle use Back: No midline spinous or paraspinal tenderness. No step off deformity. Ext: Upper and lower extremities atraumatic, without tenderness, deformity, swelling or erythema Neuro: AOx3. Normal speech. CN 2-12 grossly intact. Ambulating with steady gait. Psych: flat affect Course Course Course Narrative: This is a rapid medical exam performed by Mercedez Stevens NP: Additional HPI, ROS, PE not included below will be deferred to primary provider. Patient is a 29-year-old male with history of schizophrenia, ADHD, depression presenting to the ED with nurse from [facility] complaining of auditory hallucinations telling him to harm/kill himself. Plan to cut or hang self. Plan: med clearance then CARE team eval Reevaluation(s) Reevaluation #1: 0703 -- CBC without leukocytosis or left shift. H&H stable. Chemistry without acute electrolyte abnormality requiring intervention. No SUSANNE. Liver function WNL. Urine without infection. Urine toxicology negative. Ethanol undetectable. COVID negative. > patient cleared for care team consultation. Placed in physician observation. Reevaluation #2: Time: 07:07 Date: 05/10/25 Provider: Madison Dowell DO Patient in physician observation for psychiatric evaluation.? No acute events reported overnight. No current complaints. VS stable.? Patient is in bed search status. Will continue to monitor. Reevaluation #3: Time: 12:22 Date: 05/10/25 Provider: Madison Dowell DO Physician observation ended at 1222pm. Patient to be admitted as inpatient to psychiatry. Medications Administered Generic Name Dose Route Start Last Admin Trade Name Freq PRN Reason Stop Dose Admin Amphetamine/Dextroamphetamine 30 mg 05/10/25 09:00 05/10/25 09:03 Dextroamphetamine/Amphetamine Xr 10 Mg Cap.Er.24h PO 30 mg DAILY KARI Administration Bupropion HCl 150 mg 05/09/25 18:45 05/10/25 09:03 Bupropion Hcl Xl 150 Mg Tab.Er.24h PO 150 mg DAILY KARI Administration Buspirone HCl 7.5 mg 05/09/25 21:00 05/10/25 09:03 Buspirone Hcl 5 Mg Tablet PO 7.5 mg BID KARI Administration Divalproex Sodium 1,000 mg 05/09/25 21:00 05/09/25 20:30 Divalproex Sodium Er 500 Mg Tab.Er.24h PO 1,000 mg BEDTIME KARI Administration Divalproex Sodium 250 mg 05/09/25 21:00 05/09/25 20:29 Divalproex Sodium Er 250 Mg Tab.Er.24h PO 250 mg BEDTIME KARI Administration Gabapentin 300 mg 05/09/25 18:45 05/10/25 09:03 Gabapentin 300 Mg Capsule PO 300 mg DAILY KARI Administration Olanzapine 20 mg 05/09/25 21:00 05/09/25 20:30 Olanzapine 10 Mg Tablet PO 20 mg BEDTIME KARI Administration Medical Decision Making Medical Decision Making MDM Narrative: 29-year-old male with pmhx significant for ADHD, substance abuse in recovery, and bipolar disorder presents to the ED today with RN from [facility] for evaluation of increased suicidal ideation with plan to cut or hang himself x 2 days. Differential diagnosis includes anemia, electrolyte abnormality, mood disorder, anxiety, depression, SI, polysubstance abuse Presentation not consistent with acute organic causes to include delirium, dementia or drug induced disorders (acute ingestions or withdrawal; no evidence of toxidrome).? Given the H&P, I suspect this patient is suicidal and will require observation. Will consult care team to evaluate the patient. Will also obtain labs for medical clearance. Plan: labs, ASA/APAP levels, ETOH level, UDS, care team consultation, reassessment Differential Diagnosis Differential Diagnoses: The differential diagnosis associated with the presentation includes as above. Admission/Observation Consideration of admission/observation: Escalation of care including admission/observation considered Lab Data MDM Lab Attestation statement: I reviewed the patient's lab results. as above. 05/09/25 15:45 05/09/25 15:45 Labs: Lab Results 05/09/25 05/09/25 05/09/25 Range/Units 15:45 15:52 18:05 WBC 4.8 (4.8-10.8) X10*3/uL RBC 4.34 L (4.60-5.80) X10*6/uL Hgb 14.5 (14.0-18.0) g/dl Hct 39.2 L (42.0-52.0) % MCV 90.3 (80.0-98.0) fL MCH 33.4 H (27.0-33.0) pg MCHC 37.0 H (31.0-36.0) g/dl RDW 11.0 (11.0-16.0) % Plt Count 269 (160-400) X10*3/uL MPV 9.5 (9.4-12.4) fL Immature Gran % (Auto) 0.2 (0.0-0.4) % Neut % (Auto) 47.1 (45-73) % Lymph % (Auto) 35.0 (20-40) % [place] % (Auto) 13.8 H (2-11) % Eos % (Auto) 2.9 (0-4) % Baso % (Auto) 1.0 (0-2) % Lymph # (Auto) 1.7 (1.2-4.9) X10*3/uL [place] # (Auto) 0.7 (0.1-1.2) X10*3/uL Eos # (Auto) 0.1 (0.0-0.4) X10*3/uL Baso # (Auto) 0.1 (0.0-0.2) X10*3/uL Abs Immat Gran (auto) 0.01 (0.00-0.03) X10*3/uL Absolute Neuts (auto) 2.2 (2.0-8.3) x10*3/uL Absolute Nucleated RBC 0.000 (0.0-0.012) X10*3/uL Nucleated RBC % (auto) 0.0 (0.0-0.2) /100WBC Sodium 141 (135-145) mmol/L Potassium 3.5 D (3.3-5.1) mmol/L Chloride 108 (96-108) mmol/L Carbon Dioxide 23 (22-29) mmol/L Anion Gap 14 (12-20) BUN 4 L (9-16) mg/dL Creatinine 0.87 (0.5-1.4) mg/dL Estim Creat Clear Calc 123.0 Estimated GFR > 60 Random Glucose 101 (60-115) mg/dL Calcium 8.9 D (8.4-10.2) mg/dL Total Bilirubin 0.3 (0.0-1.0) mg/dL AST 24 (5-37) U/L ALT 26 (0-40) U/L Alkaline Phosphatase 61 (39-117) U/L Total Protein 7.4 (6.5-8.0) g/dL Albumin 4.4 (3.5-5.0) g/dL Urine Color Yellow Urine Appearance Clear Urine pH 7.5 (5.0-9.0) Ur Specific [place] <= 1.005 (1.005-1.025) Urine Protein Negative (Neg-Trace) mg/dL Urine Glucose (UA) Negative (Negative) mg/dL Urine Ketones Negative (Negative) mg/dL Urine Blood Negative (Negative) Urine Nitrite Negative (Negative) Ur Leukocyte Esterase Negative (Negative) Salicylates < 5.0 L (15-30) mg/dL Urine Opiates Screen Not Detected (Not Detect) Ur Buprenorphine Scrn Not Detected (Not Detect) ng/mL Ur Oxycodone Screen Not Detected (Not Detect) ng/mL Urine Methadone Screen Not Detected (Not Detect) ng/mL Urine Fentanyl Screen Not Detected (Not Detect) Acetaminophen < 3 (<30) mcg/mL Ur Barbiturates Screen Not Detected (Not Detect) Ur Phencyclidine Scrn Not Detected (Not Detect) Ur Amphetamines Screen Not Detected (Not Detect) U Benzodiazepines Scrn Not Detected (Not Detect) Urine Cocaine Screen Not Detected (Not Detect) U Marijuana (THC) Screen Not Detected (Not Detect) Ethyl Alcohol < 10 mg/dL COVID-19 (SAEED) Negative (Negative) COVID-19 Clin Com See Note External Record Review External record reviewed: Inpatient record Chronic Conditions Patient?s care impacted by: Other (Polysubstance abuse, schizophrenic disorder) Social Determinants Patient?s care significantly limited by Social Determinants of Health including: Other Social Determinant of Health Critical Care Time Critical Care Time Critical Care Time: No Discharge Plan Discharge Clinical Impression: Suicidal ideation, Depression Patient Disposition: Admitted As Inpatient Interventions: [place]-Suicide Risk Severity Scale Last Done: 05/09/25 18:03
--- NOTE | 2025-05-09 14:50 | PC.NURSE ---
Crisis changeover in progress with security.
[2025-05-09 15:59] LABS: MANUAL DIFF FLAG NO
[2025-05-09 16:01] LABS: Appearance Urine Clear; Glucose Urine UA Negative (Negative); PH 7.5 (5.0-9.0); Specific Gravity - Urine <= 1.005 (1.005-1.025)
[2025-05-09 16:15] LABS: Alanine Aminotransferase 26 U/L (0-40); Albumin Level 4.4 g/dL (3.5-5.0); Alkaline Phosphatase 61 U/L (39-117); Anion Gap 14 (12-20); Aspartate Amino Transferase 24 U/L (5-37); Blood Urea Nitrogen 4 mg/dL (9-16); Calcium 8.9 mg/dL (8.4-10.2); Carbon Dioxide 23 mmol/L (22-29); Chloride 108 mmol/L (96-108); Creatinine Clr Calc Pharmacy 123.0; Estimated Glomerular Filt Rate > 60; Potassium 3.5 mmol/L (3.3-5.1); Sodium 141 mmol/L (135-145); Total Protein 7.4 g/dL (6.5-8.0)
[2025-05-09 16:16] LABS: Cannabinoid Screen Urine Not Detected (Not Detect)
[2025-05-09 16:29] LABS: COVID-19 Test Negative (Negative); IDNOW Serial# 6674DD1D
[2025-05-09 16:38] LABS: Hematocrit 39.2 % (42.0-52.0); Hemoglobin 14.5 g/dl (14.0-18.0); Imm Gran Abs Auto 0.01 X10*3/uL (0.00-0.03); Imm Gran Pct Auto 0.2 % (0.0-0.4); Lymphocytes Absolute Auto 1.7 X10*3/uL (1.2-4.9); Mean Corpuscular HGB Conc 37.0 g/dl (31.0-36.0); Mean Corpuscular Hemoglobin 33.4 pg (27.0-33.0); Mean Corpuscular Volume 90.3 fL (80.0-98.0); NRBC Abs Auto 0.000 X10*3/uL (0.0-0.012); NRBC Pct Auto 0.0 /100WBC (0.0-0.2); Platelet Count 269 X10*3/uL (160-400); Red Blood Count 4.34 X10*6/uL (4.60-5.80); White Blood Count 4.8 X10*3/uL (4.8-10.8)
--- NOTE | 2025-05-09 18:00 | PC.NURSE ---
Assumed care of this patient upon transfer from the main dept. Patient escorted over by KALLI Al and . Patient previously changed over, crisis change management director not documented by previous RN.
[2025-05-09 18:33] LABS: Acetaminophen LAB < 3 mcg/mL (<30); Salicylate < 5.0 mg/dL (15-30)
--- NOTE | 2025-05-09 18:36 | PC.NURSE ---
Patient's med rec complete w/ external med refill and patient confirming everything in the computer I take unwilling to give additional details. Provider Loretta to order.
--- NOTE | 2025-05-09 18:45 | MHC.CARE ---
Pt was seen by the care team and found appropriate for [facility]. Bed seach will begin at this time and section 12 was completed and placed in chart. If placement is not secured within 24 hours, a mental status update will occur at that time to determine if pt continues to meet criteria for IPLOC.
[2025-05-09] MEDS: buPROPion HCl XL 150 MG TAB.ER.24H PO (19:12)
--- NOTE | 2025-05-09 19:48 | PHA.MEDREC ---
Pharmacy Consult ? Medication Reconciliation Pharmacy has reviewed the medication reconciliation done by nursing. Also spoke to patient and he confirmed he takes 1250 mg of depakote at night and his dose of adderall xr was recently increased to 30 mg daily.
[2025-05-09 20:27] VITALS: BP 110/59; PULSE 90; RESP 18; TEMP 36.4; O2SAT 100
[2025-05-09] MEDS: Divalproex Sodium ER 250 MG TAB.ER.24H PO (20:29)
[2025-05-10 06:29] VITALS: BP 111/64; PULSE 78; RESP 16; TEMP 36.6; O2SAT 99
--- NOTE | 2025-05-10 07:12 | PC.NURSE ---
Assumed care, report received. PT is currently sleeping, safety maintained.
--- NOTE | 2025-05-10 08:03 | ECG_ITS ---
Test Reason : CHECK PROLONG QT Blood Pressure : */* mmHG Vent. Rate : 97 BPM Atrial Rate : 97 BPM P-R Int : 130 ms QRS Dur : 84 ms QT Int : 342 ms P-R-T Axes : 69 74 42 degrees QTcB Int : 434 ms Normal sinus rhythm Normal ECG When compared with ECG of 11-Apr-2025 09:51, No significant change was found Referred By: Madison Dowell Electronically Signed By: MAIA THAYER
[2025-05-10] MEDS: buPROPion HCl XL 150 MG TAB.ER.24H PO (09:03)
[2025-05-10] MEDS: Dextroamphetamine/Amphetamine XR 10 MG CAP.ER.24H 30 MG PO (09:03)
--- NOTE | 2025-05-10 12:57 | PC.NURSE ---
RN to RN with Sherry.
[2025-05-10 14:02] VITALS: BP 141/83; PULSE 120; RESP 18; TEMP 36.8; O2SAT 98; BMI 24.4
--- NOTE | 2025-05-10 16:43 | PC.ADMIT ---
Nursing admission note: 29 year old male DX: Schizoaffective disorder, bipolar type per history, ADHD per history. Referred for treatment by CARE team. Signed conditional voluntary for admission. Patient self presented to [facility] ED after reporting to staff at [facility] he was experiencing increased CAH, as well as fleeting SI, increased depression. Patient engaged easily. Calm and cooperative with admission process. Good eye contact. Dressed in hospital attire. Clean, not disheveled or malodorous. Mood reported as depressed with continued suicidal ideation. Denies intent at this time, agrees to engage staff if feelings persist or intensify. Affect congruent. Thoughts linear and organized, responds to assessment questions, guarded. Reports +AH, does not elaborate on content. Speech normal rate, tone, prosody. Per crisis evaluation patient feels increasingly helpless and hopeless. Identifies living situation as contributing factor. Resides at [facility] as part of his parole however stated it is not working for him. Denies sleep or appetite disturbances. Denies medical problems. TOX screen negative, denies current drug or alcohol use. Placed on unit safety checks. See nursing assessment, crisis evaluation for further details.
[2025-05-10 19:30] VITALS: BP 127/63; PULSE 83; RESP 18; TEMP 36.7; O2SAT 98
[2025-05-10] MEDS: Divalproex Sodium ER 250 MG TAB.ER.24H PO (20:56)
--- NOTE | 2025-05-10 21:28 | HO.PSYADMNOT ---
HPI Date of Service: 05/10/25 Chief Complaint: SI and AH Sources of Information: patient interviewed, chart reviewed and crisis/core team assessment reviewed HPI Subjective Notes: [place] Warning and Conditional Voluntary Healthcare Proxy: No Guardianship: No Medical Problems Affecting Mental Status: No Narrative: Patient is 35 years old single male with hx of bipolar and ADHD who self presented to [facility] ED after reported to staff at [facility] that he was experiencing increase in command auditory hallucinations as well as fleeting suicidal ideation. Patient also reports increase in depressive symptoms. [facility] just isn't working for me, it is causing me more stress and making me more depressed . Patient does not like it there but it was previously court mandated to reside as part of his parole. Patient has been compliant with medication but questioned if the medication has been helpful or working On M3: Patient reported that he has been depressed, feeling bored where I am . Patient also reports having suicidal thoughts no plan or intention. Do not want to be back there but wants to be in [place] with friends and family. This provider familiar with him from previous admission, and he expressed the same thoughts that he does not like to be there is not helpful environment. Has been increased depression and suicidal thoughts for the past 2 months. Denies SI/SIB//HI/AVH at this current time. Reports suicide attempt history when he was 14 years old when he tried to hang himself. Denies medical/surgical history. Reports sleep and appetite has been good. Mood is mellow , which is incongruent affect. He appeared to be irritable at times, but pleasant and cooperative during assessment. 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 Smoke half pack of cigarettes. Denies other substance use. No symptoms of withdrawal from any substances. Reports history of bipolar and ADHD, he is on Depakote, Wellbutrin, and Adderall. Does not appear to be manic, could be preoccupied, some what guarded. Discussed with patient regarding medication, he requests to have BuSpar increased from 7.5 b.i.d. reported that BuSpar is helping him with anxiety and he good like to take dose increased to control his anxiety. We will check Depakote level tomorrow. He is goal directed want to work on depression and thinking positively. Dx: Differential dx Bipolar mood, depressive mood versa Schiophrenic, and ADHD. It is not clear if he actually have bipolar, or schizophrenic or schizoaffective. Patient confirmed he has bipolar depressive mood and ADHD. Past Psychiatric History: A lot IPLOC admissions, last admission was a year ago, do not remember the place reasons he was admitted last time. Currently have outpatient psychiatrist, but wants to return to [place]. Need to reconnect with outpatient in the area. No current therapist or PCP. He is not interested in in new therapist/a PCP Medication trials: Haldol make him visual hallucination: Seeing weird colors. He was fainted on Seroquel, and risperidone causing hives/rash Medical Evaluation Reviewed: Yes Unremarkable [facility] Medical History Bipolar affect, depressed Narrative: ADHD Narrative: Denies Family History: Parents are alive. He has 5 siblings. Reports he has known not talking to them the past month. He not sure if anyone has mental health illnesses. 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 Do not like it there. He is single, never , have no children, not having his own place, but has been staying with friends. Wanted to go back to [place] where he has friends and families. Graduated from high school. Currently has no SSI/or SSDI. Not working. Substance History: History of crack cocaine use. Been clean for elopement months. Smoke half pack a day Trauma History: Denies Diagnostics Vital Signs (24Hr): Vital Signs - 24 hr 05/10/25 06:29 05/10/25 14:02 Temperature 97.8 F 98.3 F Pulse Rate 78 120 H Respiratory Rate 16 18 Blood Pressure 111/64 141/83 H Pulse Oximetry 99 98 Oxygen Delivery Method Room Air Room Air BMI result Body Mass Index 24.4 Labs 05/09/25 15:45 05/11/25 15:54 Labs: Laboratory Results - last 48 hr 05/09/25 05/09/25 05/09/25 15:45 15:52 18:05 WBC 4.8 RBC 4.34 L Hgb 14.5 Hct 39.2 L MCV 90.3 MCH 33.4 H MCHC 37.0 H RDW 11.0 Plt Count 269 MPV 9.5 Immature Gran % (Auto) 0.2 Neut % (Auto) 47.1 Lymph % (Auto) 35.0 [place] % (Auto) 13.8 H Eos % (Auto) 2.9 Baso % (Auto) 1.0 Lymph # (Auto) 1.7 [place] # (Auto) 0.7 Eos # (Auto) 0.1 Baso # (Auto) 0.1 Abs Immat Gran (auto) 0.01 Absolute Neuts (auto) 2.2 Absolute Nucleated RBC 0.000 Nucleated RBC % (auto) 0.0 Sodium 141 Potassium 3.5 D Chloride 108 Carbon Dioxide 23 Anion Gap 14 BUN 4 L Creatinine 0.87 Estim Creat Clear Calc 123.0 Estimated GFR > 60 Random Glucose 101 Calcium 8.9 D Total Bilirubin 0.3 AST 24 ALT 26 Alkaline Phosphatase 61 Total Protein 7.4 Albumin 4.4 Urine Color Yellow Urine Appearance Clear Urine pH 7.5 Ur Specific [place] <= 1.005 Urine Protein Negative Urine Glucose (UA) Negative Urine Ketones Negative Urine Blood Negative Urine Nitrite Negative Ur Leukocyte Esterase Negative Salicylates < 5.0 L Urine Opiates Screen Not Detected Ur Buprenorphine Scrn Not Detected Ur Oxycodone Screen Not Detected Urine Methadone Screen Not Detected Urine Fentanyl Screen Not Detected Acetaminophen < 3 Ur Barbiturates Screen Not Detected Ur Phencyclidine Scrn Not Detected Ur Amphetamines Screen Not Detected U Benzodiazepines Scrn Not Detected Urine Cocaine Screen Not Detected U Marijuana (THC) Screen Not Detected Ethyl Alcohol < 10 COVID-19 (SAEED) Negative COVID-19 Clin Com See Note Meds/Allergies Meds Home Medications ?Medication ?Instructions ?Recorded ?Confirmed ?Type olanzapine 20 mg tablet 20 mg PO BEDTIME 04/08/25 05/09/25 History bupropion HCl 150 mg 24 hr tablet, 150 mg PO DAILY 04/09/25 05/09/25 History extended release divalproex 500 mg tablet,extended 1,000 mg PO BEDTIME 04/09/25 05/09/25 History release 24 hr (Depakote ER) gabapentin 300 mg capsule 300 mg PO QAM 04/09/25 05/09/25 History dextroamphetamine-amphetamine ER 1 cap PO DAILY 05/09/25 05/09/25 History 30 mg 24hr capsule,extend release (Adderall XR) Allergies Allergies Allergy/AdvReac Type Severity Reaction Status Date / Time haloperidol (From Haldol) Allergy Unknown Verified 05/09/25 14:42 quetiapine (From Seroquel) Allergy Unknown Verified 05/09/25 14:42 risperidone (From Risperdal) Allergy Unknown Verified 05/09/25 14:42 Mental Status Exam Mental Status Exam Narrative: Pt is alert and oriented; behavior is cooperative, anxious, depressed with underlying irritability; dressed in hospital l attire; mood is described as mellow ; incongruent mood and affect, eye contact appropriate; Speech is normal rate, volume and not pressured; thought process is organized; Thought content is on treatment; denies SI/HI/AH/AVH. Do not appear to be psychotic. No delusional of fat paranoid statement made. Insight and judgment are poor. No pressure speech. . Assessment & Plan Assessment & Plan (1) ADHD (attention deficit hyperactivity disorder): Status: Acute Code(s): F90.9 - Attention-deficit hyperactivity disorder, unspecified type (2) Suicidal ideation: Status: Acute Code(s): R45.851 - Suicidal ideations (3) Bipolar affective, depress, mod: Status: Acute Code(s): F31.32 - Bipolar disorder, current episode depressed, moderate Plan HPI: Patient is 35 years old single male with hx of bipolar and ADHD who self presented to [facility] ED after reported to staff at [facility] that he was experiencing increase in command auditory hallucinations as well as fleeting suicidal ideation. Patient also reports increase in depressive symptoms. [facility] just isn't working for me, it is causing me more stress and making me more depressed . Patient does not like it there but it was previously court mandated to reside as part of his parole. Patient has been compliant with medication but questioned if the medication has been helpful or working. Formulation/clinical reasoning: Worsening depression anxiety, experience hallucinations with SI, history of suicide attempts. History of depression with psychotic features, ADHD. Given the above information, patient will benefit from restrictive environment, medication adjustment/changes, and refer patient back to outpatient psychiatric services for aftercare/refer patient back to [facility]. Hospital course: 05/10/25: Increase BuSpar 7.5 b.i.d. to 10 mg t.i.d. for anxiety. Continue with Depakote 1200 daily at bedtime. We will check level tomorrow. Continue with Zyprexa 20 mg at bedtime for psychosis/mood. Continue with Adderall for ADHD. Patient is not manic Wellbutrin 150 daily. Can titrate up to help with depression. Monitor closely for any manic behavior as he reports he had bipolar history. Plan Patient on 15 minute checks for safety. Admitted to . . Work with treatment team to do collateral and possible refer back to [facility] or discharge patient to [place] where he is friends and family. Patient educated on: diagnosis, medication risk/benefits and therapeutic strategies Reason for continued inpatient stay Substantial Risk for: med/psych decompensation Statement Statement: I have reviewed the history and physical and performed a pertinent examination on my patient. No changes have occurred unless specified. If the History and Physical was not performed prior to admission, the Hospitalist's service will be consulted for completing the admission physical. Time Spent With Patient Time: Total time managing care of this patient today ____ minutes.
[2025-05-11] MEDS: buPROPion HCl XL 150 MG TAB.ER.24H PO (07:54)
[2025-05-11] MEDS: Dextroamphetamine/Amphetamine XR 10 MG CAP.ER.24H 30 MG PO (07:56)
--- NOTE | 2025-05-11 08:23 | P.CONHOSP_ITS ---
History of Present Illness Data of Consult Service Date: 05/11/25 Primary Care Provider: Unknown Physician HPI Reason for consult: Medical management 29-year-old male with past medical history for ADHD, depression, bipolar disorder, substance use in recovery, and bipolar disorder, presented to the ED from a recovery program for increased suicidal ideation with plan to hang or cut himself. Workup in ED revealed no leukocytosis, stable H&H, no electrolyte abnormality requiring intervention. No evidence of liver or renal impairment. Urinalysis negative, U tox negative. No Ethanol. COVID negative. On exam he is awake and alert, no medical concerns. Review of Systems 2 Review of Systems: Denies any shortness of breath, chest pain, dizziness, lightheadedness, abdominal pain or discomfort, nausea vomiting or diarrhea PMFSH Medical History Bipolar affect, depressed Social History Household Members: Other Household Members Other:: 15 Housing: Other Housing Other:: [facility] Do you presently have visiting nurse or other home services: No Patient Tobacco Use Status: Current everyday Tobacco user Tobacco use type: Cigarette Cigarettes Per Day: 10 Years Smoked: 20 Smoked in Last 30 Days: Yes e-Cigarette/Vaping Use: Currently Using Frequency of e-Cigarette/Vaping Use: on + off Patient Interested in Nicotine Replacement: Yes Patient Given Instructions on How to Stop Smoking: Yes Date Education Initiated: 05/10/25 Second Hand Smoke Exposure: No Use of substances other than those prescribed or required for medical reasons: No Currently Displaying Signs/Symptoms of Drug Intoxication Withdrawal: No Do you feel safe in your current relationship?: No Current Relationship Is there a partner from a previous relationship who is making you feel unsafe now?: No Are you made to feel afraid or neglected: No Spiritual Healthcare Practices: None Rastafari Healthcare Practices: None Cultural Healthcare Practices: None Advance Directives: No Advance Directives Information Provided: No Do you have thoughts of harming others: None Do you have a plan to hurt others: No Plan Recently lost weight without trying: No How much weight loss: Not applicable Eating poorly because of decreased appetite: No Nutrition screen score: 0 Nutrition Risks: No Nutritional Risk Poor oral hygiene: No service: No Sexual orientation: Straight/Heterosexual Meds Allergies Allergy/AdvReac Type Severity Reaction Status Date / Time haloperidol (From Haldol) Allergy Unknown Verified 05/09/25 14:42 quetiapine (From Seroquel) Allergy Unknown Verified 05/09/25 14:42 risperidone (From Risperdal) Allergy Unknown Verified 05/09/25 14:42 Active Medications: Current Medications Acetaminophen (Acetaminophen 325 Mg Tablet) 650 mg PO Q6H PRN PRN Reason: Headache/Pain, Scale 1-10 Al Hydroxide/Mg Hydroxide (Magnesium Hydrox/Alum Hydrox 30 Ml Oral.Susp) 30 ml PO Q6H PRN PRN Reason: Heartburn/Nausea Amphetamine/Dextroamphetamine (Dextroamphetamine/Amphetamine Xr 10 Mg Cap.Er.24h) 30 mg PO DAILY [facility] Last Admin: 05/11/25 07:56 Dose: 30 mg Bupropion HCl (Bupropion Hcl Xl 150 Mg Tab.Er.24h) 150 mg PO DAILY [facility] Last Admin: 05/11/25 07:54 Dose: 150 mg Buspirone HCl (Buspirone Hcl 10 Mg Tablet) 10 mg PO TID [facility] Last Admin: 05/11/25 07:54 Dose: 10 mg Divalproex Sodium (Divalproex Sodium Er 500 Mg Tab.Er.24h) 1,000 mg PO BEDTIME [facility] Last Admin: 05/10/25 20:56 Dose: 1,000 mg Divalproex Sodium (Divalproex Sodium Er 250 Mg Tab.Er.24h) 250 mg PO BEDTIME [facility] Last Admin: 05/10/25 20:56 Dose: 250 mg Gabapentin (Gabapentin 300 Mg Capsule) 300 mg PO DAILY [facility] Last Admin: 05/11/25 07:54 Dose: 300 mg Hydroxyzine HCl (Hydroxyzine Hcl 25 Mg Tablet) 25 mg PO Q6H PRN PRN Reason: mild anxiety Magnesium Hydroxide (Milk Of Magnesia 30 Ml Oral.Susp) 30 ml PO DAILY PRN PRN Reason: Constipation Nicotine Polacrilex (Nicotine Polacrilex 2 Mg Gum) 2 mg BUCCAL Q2H PRN PRN Reason: Nicotine Cravings Olanzapine (Olanzapine 10 Mg Tablet) 20 mg PO BEDTIME [facility] Last Admin: 05/10/25 20:57 Dose: 20 mg Trazodone HCl (Trazodone Hcl 50 Mg Tablet) 50 mg PO BEDTIME MRX1 PRN PRN Reason: Insomnia Home Medications ?Medication ?Instructions ?Recorded ?Confirmed ?Last Taken ?Type olanzapine 20 mg tablet 20 mg PO BEDTIME 04/08/2504/07/25 History bupropion HCl 150 mg 24 hr tablet, 150 mg PO DAILY 05/09/25 Unknown History extended release divalproex 500 mg tablet,extended 1,000 mg PO BEDTIME 04/09/25 05/09/25 04/07/25 History release 24 hr (Depakote ER) gabapentin 300 mg capsule 300 mg PO QAM 04/09/2505/0904/07/25 History dextroamphetamine-amphetamine ER 1 cap PO DAILY 05/09/25 Unknown History 30 mg 24hr capsule,extend release (Adderall XR) Physical Exam 2 Vital Signs and Narrative: Vital Signs: Last Vital Signs Temp 98.0 F 05/10/25 19:30 Pulse 83 05/10/25 19:30 Resp 18 05/10/25 19:30 BP 127/63 05/10/25 19:30 Pulse Ox 98 05/10/25 19:30 O2 Del Method Room Air 05/10/25 19:30 BMI result Body Mass Index 24.4 General: Well appearing, in no acute distress. Skin: Warm, dry, intact. No rashes or lesions. Head: Normocephalic, atraumatic. EENT: Hearing is intact. Moist mucous membranes.? Cardiac:S1, S2 Lungs:LS clear Ext: No swelling, moves all extremities. Neuro: AOx3. Normal speech. CN 2-12 grossly intact. Ambulating with steady gait. Psych: flat affect Results Labs 05/09/25 15:45 05/09/25 15:45 Assessment and Plan (1) Depression: Status: Acute Plan 29-year-old male with past medical history of ADHD, substance use in his recovery, depression, bipolar disorder, presented to ED from his due a recovery program for increased suicidal ideation with a plan. He is admitted to inpatient psych for further care and treatment. ADHD/substance use and recovery/depression/bipolar disorder Treatment per psychiatric team Thank you for allowing me to participate in the care of this patient. Will follow as needed, please notify medical provider with any changes in condition or concerns.
[2025-05-11 10:18] VITALS: BP 143/83; PULSE 91; RESP 16; TEMP 36.5; O2SAT 98
--- NOTE | 2025-05-11 12:48 | P.PNPSI_ITS ---
Subjective Subjective Date of Service: 05/11/25 Reason For Visit: SI and AH Subjective Notes: Conditional Voluntary Interim History: Active on unit. Patient reports feeling depressed because I don't want to live at [facility]. I talked to my industrial photographer about it and I want to go back to [place] . Patient declined to sign CURRY for traffic division commanding officer to obtain collateral. Pt would not give reason as to why he does not want team to contact his traffic division commanding officer. Pt denies SI/HI/AH. He reports visual hallucinations on and off of colors around people . Continue current tx plan. Medication Compliance: Yes Side effects from medications: No Attending Groups: Yes Mental Status Exam Mental Status Exam Narrative: Pt is alert and oriented; behavior is cooperative and calm, guarded; dressed in casual attire; mood is described as depressed ; eye contact appropriate; Speech is normal rate, volume and not pressured; thought process is organized; Thought content is on tx; denies SI/HI/AH. Pt reports visual hallucinations on and off of colors . Diagnostics Vital Signs (24Hr): Vital Signs - 24 hr 05/10/25 14:02 05/10/25 19:30 05/11/25 10:18 Temperature 98.3 F 98.0 F 97.7 F Pulse Rate 120 H 83 91 Respiratory Rate 18 18 16 Blood Pressure 141/83 H 127/63 143/83 H Pulse Oximetry 98 98 98 Oxygen Delivery Method Room Air Room Air Room Air BMI result Body Mass Index 24.4 Labs 05/09/25 15:45 05/09/25 15:45 Labs: Laboratory Results - last 48 hr 05/09/25 05/09/25 05/09/25 15:45 15:52 18:05 WBC 4.8 RBC 4.34 L Hgb 14.5 Hct 39.2 L MCV 90.3 MCH 33.4 H MCHC 37.0 H RDW 11.0 Plt Count 269 MPV 9.5 Immature Gran % (Auto) 0.2 Neut % (Auto) 47.1 Lymph % (Auto) 35.0 [place] % (Auto) 13.8 H Eos % (Auto) 2.9 Baso % (Auto) 1.0 Lymph # (Auto) 1.7 [place] # (Auto) 0.7 Eos # (Auto) 0.1 Baso # (Auto) 0.1 Abs Immat Gran (auto) 0.01 Absolute Neuts (auto) 2.2 Absolute Nucleated RBC 0.000 Nucleated RBC % (auto) 0.0 Sodium 141 Potassium 3.5 D Chloride 108 Carbon Dioxide 23 Anion Gap 14 BUN 4 L Creatinine 0.87 Estim Creat Clear Calc 123.0 Estimated GFR > 60 Random Glucose 101 Calcium 8.9 D Total Bilirubin 0.3 AST 24 ALT 26 Alkaline Phosphatase 61 Total Protein 7.4 Albumin 4.4 Urine Color Yellow Urine Appearance Clear Urine pH 7.5 Ur Specific Alpine <= 1.005 Urine Protein Negative Urine Glucose (UA) Negative Urine Ketones Negative Urine Blood Negative Urine Nitrite Negative Ur Leukocyte Esterase Negative Salicylates < 5.0 L Urine Opiates Screen Not Detected Ur Buprenorphine Scrn Not Detected Ur Oxycodone Screen Not Detected Urine Methadone Screen Not Detected Urine Fentanyl Screen Not Detected Acetaminophen < 3 Ur Barbiturates Screen Not Detected Ur Phencyclidine Scrn Not Detected Ur Amphetamines Screen Not Detected U Benzodiazepines Scrn Not Detected Urine Cocaine Screen Not Detected U Marijuana (THC) Screen Not Detected Ethyl Alcohol < 10 COVID-19 ([facility]EED) Negative COVID-19 Clin Com See Note Medications Medications Current Medications Acetaminophen (Acetaminophen 325 Mg Tablet) 650 mg PO Q6H PRN PRN Reason: Headache/Pain, Scale 1-10 Al Hydroxide/Mg Hydroxide (Magnesium Hydrox/Alum Hydrox 30 Ml Oral.Susp) 30 ml PO Q6H PRN PRN Reason: Heartburn/Nausea Amphetamine/Dextroamphetamine (Dextroamphetamine/Amphetamine Xr 10 Mg Cap.Er.24h) 30 mg PO DAILY [facility] Last Admin: 05/11/25 07:56 Dose: 30 mg Bupropion HCl (Bupropion Hcl Xl 150 Mg Tab.Er.24h) 150 mg PO DAILY [facility] Last Admin: 05/11/25 07:54 Dose: 150 mg Buspirone HCl (Buspirone Hcl 10 Mg Tablet) 10 mg PO TID [facility] Last Admin: 05/11/25 07:54 Dose: 10 mg Divalproex Sodium (Divalproex Sodium Er 500 Mg Tab.Er.24h) 1,000 mg PO BEDTIME [facility] Last Admin: 05/10/25 20:56 Dose: 1,000 mg Divalproex Sodium (Divalproex Sodium Er 250 Mg Tab.Er.24h) 250 mg PO BEDTIME [facility] Last Admin: 05/10/25 20:56 Dose: 250 mg Gabapentin (Gabapentin 300 Mg Capsule) 300 mg PO DAILY [facility] Last Admin: 05/11/25 07:54 Dose: 300 mg Hydroxyzine HCl (Hydroxyzine Hcl 25 Mg Tablet) 25 mg PO Q6H PRN PRN Reason: mild anxiety Magnesium Hydroxide (Milk Of Magnesia 30 Ml Oral.Susp) 30 ml PO DAILY PRN PRN Reason: Constipation Nicotine Polacrilex (Nicotine Polacrilex 2 Mg Gum) 2 mg BUCCAL Q2H PRN PRN Reason: Nicotine Cravings Olanzapine (Olanzapine 10 Mg Tablet) 20 mg PO BEDTIME [facility] Last Admin: 05/10/25 20:57 Dose: 20 mg Trazodone HCl (Trazodone Hcl 50 Mg Tablet) 50 mg PO BEDTIME MRX1 PRN PRN Reason: Insomnia Allergies Allergies Allergy/AdvReac Type Severity Reaction Status Date / Time haloperidol (From Haldol) Allergy Unknown Verified 05/09/25 14:42 quetiapine (From Seroquel) Allergy Unknown Verified 05/09/25 14:42 risperidone (From Risperdal) Allergy Unknown Verified 05/09/25 14:42 Assessment & Plan Assessment & Plan (1) Bipolar affective, depress, mod: Status: Acute Code(s): F31.32 - Bipolar disorder, current episode depressed, moderate (2) ADHD (attention deficit hyperactivity disorder): Status: Acute Code(s): F90.9 - Attention-deficit hyperactivity disorder, unspecified type (3) Suicidal ideation: Status: Acute Code(s): R45.851 - Suicidal ideations Plan Patient is 35 years old single male with hx of bipolar and ADHD who self presented to [facility] ED after reported to staff at [facility] that he was experiencing increase in command auditory hallucinations as well as fleeting suicidal ideation. Patient also reports increase in depressive symptoms. [employer] just isn't working for me, it is causing me more stress and making me more depressed . Patient does not like it there but it was previously court mandated to reside as part of his parole. Patient has been compliant with medication but questioned if the medication has been helpful or working. Formulation/clinical reasoning: Worsening depression anxiety, experience hallucinations with SI, history of suicide attempts. History of depression with psychotic features, ADHD. Given the above information, patient will benefit from restrictive environment, medication adjustment/changes, and refer patient back to outpatient psychiatric services for aftercare/refer patient back to [facility]. Plan: Patient on 15 minute checks for safety. Admitted to . CV. Work with treatment team to do collateral and possible refer back to [facility] or discharge patient to [place] where he is friends and family. 05/10/25: increase BuSpar 7.5 b.i.d. to 10 mg t.i.d. for anxiety. Continue with Depakote 1200 daily at bedtime. We will check level tomorrow. Continue with Zyprexa 20 mg at bedtime for psychosis/mood. Continue with Adderall for ADHD. Patient is not manic Wellbutrin 150 daily. Can titrate up to help with depression. Monitor closely for any manic behavior as he reports he had bipolar history. 05/11: Active on unit. Patient reports feeling depressed because I don't want to live at [facility]. I talked to my industrial photographer about it and I want to go back to [place] . Patient declined to sign [employer] for traffic division commanding officer to obtain collateral. Pt would not give reason as to why he does not want team to contact his traffic division commanding officer. Pt denies SI/HI/AH. He reports visual hallucinations on and off of colors around people . Continue current tx plan. Patient educated on: diagnosis, medication risk/benefits and therapeutic strategies Reason for continued inpatient stay Substantial Risk for: med/psych decompensation Time Spent With Patient Time: Total time managing care of this patient today _20___ minutes.
[2025-05-11 16:48] LABS: Hemoglobin A1C 107.3253 umol/L; Total Hemoglobin (HGBA1C) 3443.4732 umol/L
[2025-05-11 17:15] LABS: Alanine Aminotransferase 23 U/L (0-40); Albumin Level 4.4 g/dL (3.5-5.0); Alkaline Phosphatase 63 U/L (39-117); Anion Gap 13 (12-20); Aspartate Amino Transferase 40 U/L (5-37); Blood Urea Nitrogen 17 mg/dL (9-16); Calcium 9.7 mg/dL (8.4-10.2); Carbon Dioxide 25 mmol/L (22-29); Chloride 104 mmol/L (96-108); Cholesterol 212 mg/dL (<200); Creatinine Clr Calc Pharmacy 120.2; Estimated Glomerular Filt Rate > 60; HDL Cholesterol 42 mg/dL (>40); Potassium 3.7 mmol/L (3.3-5.1); Sodium 138 mmol/L (135-145); Total Protein 7.4 g/dL (6.5-8.0); Triglycerides 273 mg/dL (<150)
[2025-05-11 17:29] LABS: Free T4 (Free Thyroxine) 1.17 ng/dL (0.71-1.85); Thyroid Stimulating Hormone 1.47 uIU/mL (0.32-4.0)
[2025-05-11 19:42] VITALS: BP 132/65; PULSE 91; RESP 16; TEMP 36.4; O2SAT 97
[2025-05-11] MEDS: Divalproex Sodium ER 250 MG TAB.ER.24H PO (20:27)
[2025-05-12] MEDS: Dextroamphetamine/Amphetamine XR 10 MG CAP.ER.24H 30 MG PO (08:29)
[2025-05-12] MEDS: buPROPion HCl XL 150 MG TAB.ER.24H PO (08:29)
--- NOTE | 2025-05-12 08:41 | P.PNPSI_ITS ---
Subjective Subjective Date of Service: 05/12/25 Reason For Visit: SI and AH Subjective Notes: Conditional Voluntary Interim History: Active on unit. Patient reports having some anxiety today; he reports sleeping well. per nursing, slept 8 hours last night. medication compliant. denies SI/HI/VH/AH. Encouraged to stay out of bed and attend groups. Continue current tx plan. Medication Compliance: Yes Side effects from medications: No Attending Groups: Intermittent Mental Status Exam Mental Status Exam Narrative: Pt is alert and oriented; behavior is cooperative and calm; dressed in casual attire; mood is described as anxious ; eye contact appropriate; Speech is normal rate, volume and not pressured; thought process is organized; Thought content is on tx; denies SI/HI/VH/AH. Diagnostics Vital Signs (24Hr): Vital Signs - 24 hr 05/11/25 10:18 05/11/25 19:42 Temperature 97.7 F 97.6 F Pulse Rate 91 91 Respiratory Rate 16 16 Blood Pressure 143/83 H 132/65 Pulse Oximetry 98 97 Oxygen Delivery Method Room Air Room Air BMI result Body Mass Index 24.4 Labs 05/09/25 15:45 05/11/25 15:54 Labs: Laboratory Results - last 48 hr 05/11/25 15:54 Sodium 138 Potassium 3.7 Chloride 104 Carbon Dioxide 25 Anion Gap 13 BUN 17 H Creatinine 0.89 Estim Creat Clear Calc 120.2 Estimated GFR > 60 Random Glucose 104 Estimat Average Glucose 97 Hemoglobin A1c % 5.0 Calcium 9.7 D Total Bilirubin 0.2 AST 40 H ALT 23 Alkaline Phosphatase 63 Total Protein 7.4 Albumin 4.4 Triglycerides 273 H Cholesterol 212 H LDL Cholesterol, Calc 116 H HDL Cholesterol 42 TSH 1.47 Free T4 1.17 Valproic Acid 62.9 Medications Medications Current Medications Acetaminophen (Acetaminophen 325 Mg Tablet) 650 mg PO Q6H PRN PRN Reason: Headache/Pain, Scale 1-10 Al Hydroxide/Mg Hydroxide (Magnesium Hydrox/Alum Hydrox 30 Ml Oral.Susp) 30 ml PO Q6H PRN PRN Reason: Heartburn/Nausea Amphetamine/Dextroamphetamine (Dextroamphetamine/Amphetamine Xr 10 Mg Cap.Er.24h) 30 mg PO DAILY [facility] Last Admin: 05/12/25 08:29 Dose: 30 mg Bupropion HCl (Bupropion Hcl Xl 150 Mg Tab.Er.24h) 150 mg PO DAILY [facility] Last Admin: 05/12/25 08:29 Dose: 150 mg Buspirone HCl (Buspirone Hcl 10 Mg Tablet) 10 mg PO TID [facility] Last Admin: 05/12/25 08:29 Dose: 10 mg Divalproex Sodium (Divalproex Sodium Er 500 Mg Tab.Er.24h) 1,000 mg PO BEDTIME [facility] Last Admin: 05/11/25 20:27 Dose: 1,000 mg Divalproex Sodium (Divalproex Sodium Er 250 Mg Tab.Er.24h) 250 mg PO BEDTIME [facility] Last Admin: 05/11/25 20:27 Dose: 250 mg Gabapentin (Gabapentin 300 Mg Capsule) 300 mg PO DAILY [facility] Last Admin: 05/12/25 08:29 Dose: 300 mg Hydroxyzine HCl (Hydroxyzine Hcl 25 Mg Tablet) 25 mg PO Q6H PRN PRN Reason: mild anxiety Last Admin: 05/11/25 16:52 Dose: 25 mg Magnesium Hydroxide (Milk Of Magnesia 30 Ml Oral.Susp) 30 ml PO DAILY PRN PRN Reason: Constipation Nicotine Polacrilex (Nicotine Polacrilex 2 Mg Gum) 2 mg BUCCAL Q2H PRN PRN Reason: Nicotine Cravings Last Admin: 05/11/25 20:32 Dose: 2 mg Olanzapine (Olanzapine 10 Mg Tablet) 20 mg PO BEDTIME [facility] Last Admin: 05/11/25 20:27 Dose: 20 mg Trazodone HCl (Trazodone Hcl 50 Mg Tablet) 50 mg PO BEDTIME MRX1 PRN PRN Reason: Insomnia Allergies Allergies Allergy/AdvReac Type Severity Reaction Status Date / Time haloperidol (From Haldol) Allergy Unknown Verified 05/09/25 14:42 quetiapine (From Seroquel) Allergy Unknown Verified 05/09/25 14:42 risperidone (From Risperdal) Allergy Unknown Verified 05/09/25 14:42 Assessment & Plan Assessment & Plan (1) Bipolar affective, depress, mod: Status: Acute Code(s): F31.32 - Bipolar disorder, current episode depressed, moderate Plan Patient is 35 years old single male with hx of bipolar and ADHD who self presented to [facility] ED after reported to staff at [employer] that he was experiencing increase in command auditory hallucinations as well as fleeting suicidal ideation. Patient also reports increase in depressive symptoms. [employer] just isn't working for me, it is causing me more stress and making me more depressed . Patient does not like it there but it was previously court mandated to reside as part of his parole. Patient has been compliant with medication but questioned if the medication has been helpful or working. Formulation/clinical reasoning: Worsening depression anxiety, experience hallucinations with SI, history of suicide attempts. History of depression with psychotic features, ADHD. Given the above information, patient will benefit from restrictive environment, medication adjustment/changes, and refer patient back to outpatient psychiatric services for aftercare/refer patient back to [facility]. Plan: Patient on 15 minute checks for safety. Admitted to . CV. Work with treatment team to do collateral and possible refer back to [facility] or discharge patient to [place] where he is friends and family. 05/10/25: increase BuSpar 7.5 b.i.d. to 10 mg t.i.d. for anxiety. Continue with Depakote 1200 daily at bedtime. We will check level tomorrow. Continue with Zyprexa 20 mg at bedtime for psychosis/mood. Continue with Adderall for ADHD. Patient is not manic Wellbutrin 150 daily. Can titrate up to help with depression. Monitor closely for any manic behavior as he reports he had bipolar history. 05/11: Active on unit. Patient reports feeling depressed because I don't want to live at [facility]. I talked to my mill control operator about it and I want to go back to [place] . Patient declined to sign [employer] for certified juvenile probation officer to obtain collateral. Pt would not give reason as to why he does not want team to contact his certified juvenile probation officer. Pt denies SI/HI/AH. He reports visual hallucinations on and off of colors around people . Continue current tx plan. 05/12: Active on unit. Patient reports having some anxiety today; he reports sleeping well. per nursing, slept 8 hours last night. medication compliant. denies SI/HI/VH/AH. Encouraged to stay out of bed and attend groups. Continue current tx plan. Patient educated on: diagnosis, medication risk/benefits and therapeutic strategies Reason for continued inpatient stay Substantial Risk for: med/psych decompensation Time Spent With Patient Time: Total time managing care of this patient today _20___ minutes.
[2025-05-12 19:25] VITALS: BP 137/79; PULSE 105; RESP 16; TEMP 36.8; O2SAT 96
[2025-05-12] MEDS: Divalproex Sodium ER 250 MG TAB.ER.24H PO (21:24)
[2025-05-13] MEDS: Dextroamphetamine/Amphetamine XR 10 MG CAP.ER.24H 30 MG PO (08:32)
[2025-05-13] MEDS: buPROPion HCl XL 150 MG TAB.ER.24H PO (08:33)
[2025-05-13 10:23] VITALS: BP 118/64; PULSE 92; RESP 16; TEMP 37; O2SAT 97
--- NOTE | 2025-05-13 11:35 | P.PNPSI_ITS ---
Subjective Subjective Date of Service: 05/13/25 Reason For Visit: SI and AH Subjective Notes: Conditional Voluntary Interim History: Active on unit. keeping to self. Patient reports feeling depressed and a little anxious today; he is requesting to have increase in gabapentin. Dose increased to 300mg PO BID. denies SI/HI/VH/AH. Medication Compliance: Yes Side effects from medications: No Attending Groups: Intermittent Mental Status Exam Mental Status Exam Narrative: Pt is alert and oriented; behavior is cooperative and calm; dressed in casual attire; mood is described as anxious ; eye contact appropriate; Speech is normal rate, volume and not pressured; thought process is organized; Thought content is on tx; denies SI/HI/VH/AH. Diagnostics Vital Signs (24Hr): Vital Signs - 24 hr 05/12/25 19:25 05/13/25 10:23 Temperature 98.2 F 98.6 F Pulse Rate 105 H 92 Respiratory Rate 16 16 Blood Pressure 137/79 118/64 Pulse Oximetry 96 97 Oxygen Delivery Method Room Air Room Air BMI result Body Mass Index 24.4 Labs 05/09/25 15:45 05/11/25 15:54 Labs: Laboratory Results - last 48 hr 05/11/25 15:54 Sodium 138 Potassium 3.7 Chloride 104 Carbon Dioxide 25 Anion Gap 13 BUN 17 H Creatinine 0.89 Estim Creat Clear Calc 120.2 Estimated GFR > 60 Random Glucose 104 Estimat Average Glucose 97 Hemoglobin A1c % 5.0 Calcium 9.7 D Total Bilirubin 0.2 AST 40 H ALT 23 Alkaline Phosphatase 63 Total Protein 7.4 Albumin 4.4 Triglycerides 273 H Cholesterol 212 H LDL Cholesterol, Calc 116 H HDL Cholesterol 42 TSH 1.47 Free T4 1.17 Valproic Acid 62.9 Medications Medications Current Medications Acetaminophen (Acetaminophen 325 Mg Tablet) 650 mg PO Q6H PRN PRN Reason: Headache/Pain, Scale 1-10 Al Hydroxide/Mg Hydroxide (Magnesium Hydrox/Alum Hydrox 30 Ml Oral.Susp) 30 ml PO Q6H PRN PRN Reason: Heartburn/Nausea Amphetamine/Dextroamphetamine (Dextroamphetamine/Amphetamine Xr 10 Mg Cap.Er.24h) 30 mg PO DAILY [facility] Last Admin: 05/13/25 08:32 Dose: 30 mg Bupropion HCl (Bupropion Hcl Xl 150 Mg Tab.Er.24h) 150 mg PO DAILY [facility] Last Admin: 05/13/25 08:33 Dose: 150 mg Buspirone HCl (Buspirone Hcl 10 Mg Tablet) 10 mg PO TID [facility] Last Admin: 05/13/25 08:33 Dose: 10 mg Divalproex Sodium (Divalproex Sodium Er 500 Mg Tab.Er.24h) 1,000 mg PO BEDTIME [facility] Last Admin: 05/12/25 21:24 Dose: 1,000 mg Divalproex Sodium (Divalproex Sodium Er 250 Mg Tab.Er.24h) 250 mg PO BEDTIME [facility] Last Admin: 05/12/25 21:24 Dose: 250 mg Gabapentin (Gabapentin 300 Mg Capsule) 300 mg PO DAILY [facility] Last Admin: 05/13/25 08:32 Dose: 300 mg Hydroxyzine HCl (Hydroxyzine Hcl 25 Mg Tablet) 25 mg PO Q6H PRN PRN Reason: mild anxiety Last Admin: 05/12/25 15:28 Dose: 25 mg Magnesium Hydroxide (Milk Of Magnesia 30 Ml Oral.Susp) 30 ml PO DAILY PRN PRN Reason: Constipation Nicotine Polacrilex (Nicotine Polacrilex 2 Mg Gum) 2 mg BUCCAL Q2H PRN PRN Reason: Nicotine Cravings Last Admin: 05/12/25 18:24 Dose: 2 mg Olanzapine (Olanzapine 10 Mg Tablet) 20 mg PO BEDTIME [facility] Last Admin: 05/12/25 21:24 Dose: 20 mg Trazodone HCl (Trazodone Hcl 50 Mg Tablet) 50 mg PO BEDTIME MRX1 PRN PRN Reason: Insomnia Allergies Allergies Allergy/AdvReac Type Severity Reaction Status Date / Time haloperidol (From Haldol) Allergy Unknown Verified 05/09/25 14:42 quetiapine (From Seroquel) Allergy Unknown Verified 05/09/25 14:42 risperidone (From Risperdal) Allergy Unknown Verified 05/09/25 14:42 Assessment & Plan Assessment & Plan (1) Bipolar affective, depress, mod: Status: Acute Code(s): F31.32 - Bipolar disorder, current episode depressed, moderate Plan Patient is 35 years old single male with hx of bipolar and ADHD who self presented to [facility] after reported to staff at [employer] that he was experiencing increase in command auditory hallucinations as well as fleeting suicidal ideation. Patient also reports increase in depressive symptoms. [employer] just isn't working for me, it is causing me more stress and making me more depressed . Patient does not like it there but it was previously court mandated to reside as part of his parole. Patient has been compliant with medication but questioned if the medication has been helpful or working. Formulation/clinical reasoning: Worsening depression anxiety, experience hallucinations with SI, history of suicide attempts. History of depression with psychotic features, ADHD. Given the above information, patient will benefit from restrictive environment, medication adjustment/changes, and refer patient back to outpatient psychiatric services for aftercare/refer patient back to [facility]. Plan: Patient on 15 minute checks for safety. Admitted to . CV. Work with treatment team to do collateral and possible refer back to [facility] or discharge patient to [place] where he is friends and family. 05/10/25: increase BuSpar 7.5 b.i.d. to 10 mg t.i.d. for anxiety. Continue with Depakote 1200 daily at bedtime. We will check level tomorrow. Continue with Zyprexa 20 mg at bedtime for psychosis/mood. Continue with Adderall for ADHD. Patient is not manic Wellbutrin 150 daily. Can titrate up to help with depression. Monitor closely for any manic behavior as he reports he had bipolar history. 05/11: Active on unit. Patient reports feeling depressed because I don't want to live at [facility]. I talked to my manager test about it and I want to go back to [place] . Patient declined to sign CURRY for chief investment officer to obtain collateral. Pt would not give reason as to why he does not want team to contact his chief investment officer. Pt denies SI/HI/AH. He reports visual hallucinations on and off of colors around people . Continue current tx plan. 05/12: Active on unit. Patient reports having some anxiety today; he reports sleeping well. per nursing, slept 8 hours last night. medication compliant. denies SI/HI/VH/AH. Encouraged to stay out of bed and attend groups. Continue current tx plan. 05/13: Active on unit. keeping to self. Patient reports feeling depressed and a little anxious today; he is requesting to have increase in gabapentin. Dose increased to 300mg PO BID. denies SI/HI/VH/AH. Patient educated on: diagnosis, medication risk/benefits and therapeutic strategies Reason for continued inpatient stay Substantial Risk for: med/psych decompensation Time Spent With Patient Time: Total time managing care of this patient today _15___ minutes.
[2025-05-13 19:54] VITALS: BP 148/97; PULSE 106; RESP 16; TEMP 37.1; O2SAT 98
[2025-05-13] MEDS: Divalproex Sodium ER 250 MG TAB.ER.24H PO (20:29)
[2025-05-14] MEDS: Dextroamphetamine/Amphetamine XR 10 MG CAP.ER.24H 30 MG PO (08:43)
[2025-05-14] MEDS: buPROPion HCl XL 150 MG TAB.ER.24H PO (08:44)
--- NOTE | 2025-05-14 10:11 | HO.PSYCHPN ---
Subjective Subjective Date of Service: 05/14/25 Reason For Visit: SI and AH Interim History: Active on unit. Guarded. Said he is doing OK. Tolerating medications well. No concerns. RN reports patient is cooperative. Overwhelmed with the acuity on the unit. denies SI/HI/VH/AH. Review of Systems Review of Systems Denies any shortness of breath, chest pain, dizziness, lightheadedness, abdominal pain or discomfort, nausea vomiting or diarrhea Yes all other systems are reviewed and are negative Mental Status Exam Mental Status Exam Narrative: Pt is alert and oriented; behavior is cooperative and calm; dressed in casual attire; mood is described as anxious ; eye contact appropriate; Speech is normal rate, volume and not pressured; thought process is organized; Thought content is on tx; denies SI/HI/VH/AH. Diagnostics Vital Signs (24Hr): Vital Signs - 24 hr 05/13/25 10:23 05/13/25 19:54 05/14/25 08:00 Temperature 98.6 F 98.8 F Pulse Rate 92 106 H Respiratory Rate 16 16 16 Blood Pressure 118/64 148/97 H Pulse Oximetry 97 98 Oxygen Delivery Method Room Air Room Air BMI result Body Mass Index 24.4 Labs 05/09/25 15:45 05/11/25 15:54 Medications Medications Current Medications Acetaminophen (Acetaminophen 325 Mg Tablet) 650 mg PO Q6H PRN PRN Reason: Headache/Pain, Scale 1-10 Al Hydroxide/Mg Hydroxide (Magnesium Hydrox/Alum Hydrox 30 Ml Oral.Susp) 30 ml PO Q6H PRN PRN Reason: Heartburn/Nausea Amphetamine/Dextroamphetamine (Dextroamphetamine/Amphetamine Xr 10 Mg Cap.Er.24h) 30 mg PO DAILY [facility] Last Admin: 05/14/25 08:43 Dose: 30 mg Bupropion HCl (Bupropion Hcl Xl 150 Mg Tab.Er.24h) 150 mg PO DAILY [facility] Last Admin: 05/14/25 08:44 Dose: 150 mg Buspirone HCl (Buspirone Hcl 10 Mg Tablet) 10 mg PO TID [facility] Last Admin: 05/14/25 08:44 Dose: 10 mg Divalproex Sodium (Divalproex Sodium Er 500 Mg Tab.Er.24h) 1,000 mg PO BEDTIME [facility] Last Admin: 05/13/25 20:29 Dose: 1,000 mg Divalproex Sodium (Divalproex Sodium Er 250 Mg Tab.Er.24h) 250 mg PO BEDTIME [facility] Last Admin: 05/13/25 20:29 Dose: 250 mg Gabapentin (Gabapentin 300 Mg Capsule) 300 mg PO BID [facility] Last Admin: 05/14/25 08:44 Dose: 300 mg Hydroxyzine HCl (Hydroxyzine Hcl 25 Mg Tablet) 25 mg PO Q6H PRN PRN Reason: mild anxiety Last Admin: 05/13/25 16:01 Dose: 25 mg Magnesium Hydroxide (Milk Of Magnesia 30 Ml Oral.Susp) 30 ml PO DAILY PRN PRN Reason: Constipation Nicotine Polacrilex (Nicotine Polacrilex 2 Mg Gum) 2 mg BUCCAL Q2H PRN PRN Reason: Nicotine Cravings Last Admin: 05/12/25 18:24 Dose: 2 mg Olanzapine (Olanzapine 10 Mg Tablet) 20 mg PO BEDTIME [facility] Last Admin: 05/13/25 20:30 Dose: 20 mg Trazodone HCl (Trazodone Hcl 50 Mg Tablet) 50 mg PO BEDTIME MRX1 PRN PRN Reason: Insomnia Allergies Allergies Allergy/AdvReac Type Severity Reaction Status Date / Time haloperidol (From Haldol) Allergy Unknown Verified 05/09/25 14:42 quetiapine (From Seroquel) Allergy Unknown Verified 05/09/25 14:42 risperidone (From Risperdal) Allergy Unknown Verified 05/09/25 14:42 Assessment & Plan Assessment & Plan (1) Bipolar affective, depress, mod: Status: Acute Code(s): F31.32 - Bipolar disorder, current episode depressed, moderate Plan Patient is 35 years old single male with hx of bipolar and ADHD who self presented to [facility] after reported to staff at [employer] that he was experiencing increase in command auditory hallucinations as well as fleeting suicidal ideation. Patient also reports increase in depressive symptoms. [employer] just isn't working for me, it is causing me more stress and making me more depressed . Patient does not like it there but it was previously court mandated to reside as part of his parole. Patient has been compliant with medication but questioned if the medication has been helpful or working. Formulation/clinical reasoning: Worsening depression anxiety, experience hallucinations with SI, history of suicide attempts. History of depression with psychotic features, ADHD. Given the above information, patient will benefit from restrictive environment, medication adjustment/changes, and refer patient back to outpatient psychiatric services for aftercare/refer patient back to [facility]. Plan: Patient on 15 minute checks for safety. Admitted to [facility]. CV. Work with treatment team to do collateral and possible refer back to [facility] or discharge patient to [place] where he is friends and family. 05/10/25: increase BuSpar 7.5 b.i.d. to 10 mg t.i.d. for anxiety. Continue with Depakote 1200 daily at bedtime. We will check level tomorrow. Continue with Zyprexa 20 mg at bedtime for psychosis/mood. Continue with Adderall for ADHD. Patient is not manic Wellbutrin 150 daily. Can titrate up to help with depression. Monitor closely for any manic behavior as he reports he had bipolar history. 05/11: Active on unit. Patient reports feeling depressed because I don't want to live at [facility]. I talked to my retail advertising sales manager about it and I want to go back to [place] . Patient declined to sign CURRY for court officer to obtain collateral. Pt would not give reason as to why he does not want team to contact his court officer. Pt denies SI/HI/AH. He reports visual hallucinations on and off of colors around people . Continue current tx plan. 05/12: Active on unit. Patient reports having some anxiety today; he reports sleeping well. per nursing, slept 8 hours last night. medication compliant. denies SI/HI/VH/AH. Encouraged to stay out of bed and attend groups. Continue current tx plan. 05/13: Active on unit. keeping to self. Patient reports feeling depressed and a little anxious today; he is requesting to have increase in gabapentin. Dose increased to 300mg PO BID. denies SI/HI/VH/AH. 05/14: continue current management and treatment plan. Reason for continued inpatient stay Substantial Risk for: inability to function and rapid decompensation Time Spent With Patient Time: Total time managing care of this patient today ____ minutes.
[2025-05-14 11:40] VITALS: BP 129/80; PULSE 98; RESP 16; TEMP 37; O2SAT 96
[2025-05-14 20:00] VITALS: BP 155/93; PULSE 114; RESP 18; TEMP 37.3; O2SAT 98
--- NOTE | 2025-05-14 20:06 | PC.NURSE ---
Giovanni was educated on risks with abruptly stop taking Depakote medication.
[2025-05-15 08:00] VITALS: RESP 14
[2025-05-15] MEDS: Dextroamphetamine/Amphetamine XR 10 MG CAP.ER.24H 30 MG PO (09:23)
[2025-05-15] MEDS: buPROPion HCl XL 150 MG TAB.ER.24H PO (09:24)
[2025-05-15 11:20] VITALS: BP 137/89; PULSE 88; RESP 16; TEMP 36.6; O2SAT 97
--- NOTE | 2025-05-15 12:09 | P.PNPSI_ITS ---
Subjective Subjective Date of Service: 05/15/25 Reason For Visit: SI and AH Interim History: Active on unit. Less guarded today. Pleasant. Initiating more contact on the unit with staff and patients. Said he is doing OK. Says he has bipolar so mood still with some instability but improved. Tolerating medications well. No concerns. RN reports patient is cooperative. Overwhelmed with the acuity on the unit. denies SI/HI/VH/AH. Review of Systems Review of Systems Denies any shortness of breath, chest pain, dizziness, lightheadedness, abdominal pain or discomfort, nausea vomiting or diarrhea Yes all other systems are reviewed and are negative Mental Status Exam Mental Status Exam Narrative: Pt is alert and oriented; behavior is cooperative and calm; dressed in casual attire; mood is described as anxious ; eye contact appropriate; Speech is normal rate, volume and not pressured; thought process is organized; Thought content is on tx; denies SI/HI/VH/AH. Diagnostics Vital Signs (24Hr): Vital Signs - 24 hr 05/14/25 20:00 05/15/25 08:00 05/15/25 11:20 Temperature 99.1 F 97.9 F Pulse Rate 114 H 88 Respiratory Rate 18 14 16 Blood Pressure 155/93 H 137/89 Pulse Oximetry 98 97 Oxygen Delivery Method Room Air Room Air BMI result Body Mass Index 24.4 Labs 05/09/25 15:45 05/11/25 15:54 Medications Medications Current Medications Acetaminophen (Acetaminophen 325 Mg Tablet) 650 mg PO Q6H PRN PRN Reason: Headache/Pain, Scale 1-10 Al Hydroxide/Mg Hydroxide (Magnesium Hydrox/Alum Hydrox 30 Ml Oral.Susp) 30 ml PO Q6H PRN PRN Reason: Heartburn/Nausea Amphetamine/Dextroamphetamine (Dextroamphetamine/Amphetamine Xr 10 Mg Cap.Er.24h) 30 mg PO DAILY [facility] Last Admin: 05/15/25 09:23 Dose: 30 mg Bupropion HCl (Bupropion Hcl Xl 150 Mg Tab.Er.24h) 150 mg PO DAILY [facility] Last Admin: 05/15/25 09:24 Dose: 150 mg Buspirone HCl (Buspirone Hcl 10 Mg Tablet) 10 mg PO TID [facility] Last Admin: 05/15/25 09:24 Dose: 10 mg Divalproex Sodium (Divalproex Sodium Er 500 Mg Tab.Er.24h) 1,000 mg PO BEDTIME [facility] Last Admin: 05/14/25 20:06 Dose: Not Given Divalproex Sodium (Divalproex Sodium Er 250 Mg Tab.Er.24h) 250 mg PO BEDTIME [facility] Last Admin: 05/14/25 20:06 Dose: Not Given Gabapentin (Gabapentin 300 Mg Capsule) 300 mg PO BID [facility] Last Admin: 05/15/25 09:24 Dose: 300 mg Hydroxyzine HCl (Hydroxyzine Hcl 25 Mg Tablet) 25 mg PO Q6H PRN PRN Reason: mild anxiety Last Admin: 05/14/25 16:31 Dose: 25 mg Magnesium Hydroxide (Milk Of Magnesia 30 Ml Oral.Susp) 30 ml PO DAILY PRN PRN Reason: Constipation Nicotine Polacrilex (Nicotine Polacrilex 2 Mg Gum) 2 mg BUCCAL Q2H PRN PRN Reason: Nicotine Cravings Last Admin: 05/12/25 18:24 Dose: 2 mg Olanzapine (Olanzapine 10 Mg Tablet) 20 mg PO BEDTIME [facility] Last Admin: 05/14/25 20:04 Dose: 20 mg Trazodone HCl (Trazodone Hcl 50 Mg Tablet) 50 mg PO BEDTIME MRX1 PRN PRN Reason: Insomnia Allergies Allergies Allergy/AdvReac Type Severity Reaction Status Date / Time haloperidol (From Haldol) Allergy Unknown Verified 05/09/25 14:42 quetiapine (From Seroquel) Allergy Unknown Verified 05/09/25 14:42 risperidone (From Risperdal) Allergy Unknown Verified 05/09/25 14:42 Assessment & Plan Assessment & Plan (1) Bipolar affective, depress, mod: Status: Acute Code(s): F31.32 - Bipolar disorder, current episode depressed, moderate Plan Patient is 35 years old single male with hx of bipolar and ADHD who self presented to [facility] after reported to staff at [employer] that he was experiencing increase in command auditory hallucinations as well as fleeting suicidal ideation. Patient also reports increase in depressive symptoms. [employer] just isn't working for me, it is causing me more stress and making me more depressed . Patient does not like it there but it was previously court mandated to reside as part of his parole. Patient has been compliant with medication but questioned if the medication has been helpful or working. Formulation/clinical reasoning: Worsening depression anxiety, experience hallucinations with SI, history of suicide attempts. History of depression with psychotic features, ADHD. Given the above information, patient will benefit from restrictive environment, medication adjustment/changes, and refer patient back to outpatient psychiatric services for aftercare/refer patient back to [facility]. Plan: Patient on 15 minute checks for safety. Admitted to [facility]. CV. Work with treatment team to do collateral and possible refer back to [facility] or discharge patient to [place] where he is friends and family. 05/10/25: increase BuSpar 7.5 b.i.d. to 10 mg t.i.d. for anxiety. Continue with Depakote 1200 daily at bedtime. We will check level tomorrow. Continue with Zyprexa 20 mg at bedtime for psychosis/mood. Continue with Adderall for ADHD. Patient is not manic Wellbutrin 150 daily. Can titrate up to help with depression. Monitor closely for any manic behavior as he reports he had bipolar history. 05/11: Active on unit. Patient reports feeling depressed because I don't want to live at [facility]. I talked to my silver spray worker about it and I want to go back to [place] . Patient declined to sign CURRY for resident medical officer to obtain collateral. Pt would not give reason as to why he does not want team to contact his resident medical officer. Pt denies SI/HI/AH. He reports visual hallucinations on and off of colors around people . Continue current tx plan. 05/12: Active on unit. Patient reports having some anxiety today; he reports sleeping well. per nursing, slept 8 hours last night. medication compliant. denies SI/HI/VH/AH. Encouraged to stay out of bed and attend groups. Continue current tx plan. 05/13: Active on unit. keeping to self. Patient reports feeling depressed and a little anxious today; he is requesting to have increase in gabapentin. Dose increased to 300mg PO BID. denies SI/HI/VH/AH. 05/14: continue current management and treatment plan. 05/15: continue current management and treatment plan. Reason for continued inpatient stay Substantial Risk for: harm to self, inability to function and rapid decompensation Time Spent With Patient Time: Total time managing care of this patient today ____ minutes.
[2025-05-15 19:15] VITALS: BP 123/82; PULSE 98; RESP 16; TEMP 36.9; O2SAT 96
[2025-05-16 08:21] VITALS: BP 108/62; PULSE 81; RESP 16; TEMP 37; O2SAT 96
[2025-05-16] MEDS: Dextroamphetamine/Amphetamine XR 10 MG CAP.ER.24H 30 MG PO (08:31)
[2025-05-16] MEDS: buPROPion HCl XL 150 MG TAB.ER.24H PO (08:31)
--- NOTE | 2025-05-16 13:20 | P.PNPSI_ITS ---
Subjective Subjective Date of Service: 05/16/25 Reason For Visit: SI and AH Subjective Notes: Conditional Voluntary Interim History: Active on unit. Patient reports feeling good and ready to go tomorrow ; laughing and joking during assessment. denies SI/HI/VH/AH. Patient reports he plans on following up with his outpatient providers. Medication Compliance: Yes Side effects from medications: No Attending Groups: Yes Mental Status Exam Mental Status Exam Narrative: Pt is alert and oriented; behavior is cooperative and calm; dressed in casual attire; mood is described as good ; eye contact appropriate; Speech is normal rate, volume and not pressured; thought process is organized; Thought content is on discharge; denies SI/HI/VH/AH. Diagnostics Vital Signs (24Hr): Vital Signs - 24 hr 05/15/25 19:15 05/15/25 19:15 05/16/25 08:21 Temperature 98.5 F 98.5 F 98.6 F Pulse Rate 98 98 81 Respiratory Rate 16 16 16 Blood Pressure 123/82 123/82 108/62 Pulse Oximetry 96 96 96 Oxygen Delivery Method Room Air Room Air Room Air BMI result Body Mass Index 24.4 Labs 05/09/25 15:45 05/11/25 15:54 Medications Medications Current Medications Acetaminophen (Acetaminophen 325 Mg Tablet) 650 mg PO Q6H PRN PRN Reason: Headache/Pain, Scale 1-10 Al Hydroxide/Mg Hydroxide (Magnesium Hydrox/Alum Hydrox 30 Ml Oral.Susp) 30 ml PO Q6H PRN PRN Reason: Heartburn/Nausea Amphetamine/Dextroamphetamine (Dextroamphetamine/Amphetamine Xr 10 Mg Cap.Er.24h) 30 mg PO DAILY [facility] Last Admin: 05/16/25 08:31 Dose: 30 mg Bupropion HCl (Bupropion Hcl Xl 150 Mg Tab.Er.24h) 150 mg PO DAILY [facility] Last Admin: 05/16/25 08:31 Dose: 150 mg Buspirone HCl (Buspirone Hcl 10 Mg Tablet) 10 mg PO TID [facility] Last Admin: 05/16/25 08:32 Dose: 10 mg Divalproex Sodium (Divalproex Sodium Er 500 Mg Tab.Er.24h) 1,000 mg PO BEDTIME [facility] Last Admin: 05/15/25 20:10 Dose: Not Given Divalproex Sodium (Divalproex Sodium Er 250 Mg Tab.Er.24h) 250 mg PO BEDTIME [facility] Last Admin: 05/15/25 20:11 Dose: Not Given Gabapentin (Gabapentin 300 Mg Capsule) 300 mg PO BID [facility] Last Admin: 05/16/25 08:32 Dose: 300 mg Hydroxyzine HCl (Hydroxyzine Hcl 25 Mg Tablet) 25 mg PO Q6H PRN PRN Reason: mild anxiety Last Admin: 05/14/25 16:31 Dose: 25 mg Magnesium Hydroxide (Milk Of Magnesia 30 Ml Oral.Susp) 30 ml PO DAILY PRN PRN Reason: Constipation Nicotine Polacrilex (Nicotine Polacrilex 2 Mg Gum) 2 mg BUCCAL Q2H PRN PRN Reason: Nicotine Cravings Last Admin: 05/12/25 18:24 Dose: 2 mg Olanzapine (Olanzapine 10 Mg Tablet) 20 mg PO BEDTIME [facility]ARI Last Admin: 05/15/25 20:09 Dose: 20 mg Trazodone HCl (Trazodone Hcl 50 Mg Tablet) 50 mg PO BEDTIME MRX1 PRN PRN Reason: Insomnia Allergies Allergies Allergy/AdvReac Type Severity Reaction Status Date / Time haloperidol (From Haldol) Allergy Unknown Verified 05/09/25 14:42 quetiapine (From Seroquel) Allergy Unknown Verified 05/09/25 14:42 risperidone (From Risperdal) Allergy Unknown Verified 05/09/25 14:42 Assessment & Plan Assessment & Plan (1) Bipolar affective, depress, mod: Status: Acute Code(s): F31.32 - Bipolar disorder, current episode depressed, moderate (2) ADHD (attention deficit hyperactivity disorder): Status: Acute Code(s): F90.9 - Attention-deficit hyperactivity disorder, unspecified type (3) Suicidal ideation: Status: Acute Code(s): R45.851 - Suicidal ideations Plan Patient is 35 years old single male with hx of bipolar and ADHD who self presented to [facility] ED after reported to staff at [facility] that he was experiencing increase in command auditory hallucinations as well as fleeting suicidal ideation. Patient also reports increase in depressive symptoms. [facility] just isn't working for me, it is causing me more stress and making me more depressed . Patient does not like it there but it was previously court mandated to reside as part of his parole. Patient has been compliant with medication but questioned if the medication has been helpful or working. Formulation/clinical reasoning: Worsening depression anxiety, experience hallucinations with SI, history of suicide attempts. History of depression with psychotic features, ADHD. Given the above information, patient will benefit from restrictive environment, medication adjustment/changes, and refer patient back to outpatient psychiatric services for aftercare/refer patient back to [facility]. Plan Patient on 15 minute checks for safety. Admitted to M3. CV. Work with treatment team to do collateral and possible refer back to [facility] or discharge patient to [place] where he is friends and family. 05/10/25: increase BuSpar 7.5 b.i.d. to 10 mg t.i.d. for anxiety. Continue with Depakote 1200 daily at bedtime. We will check level tomorrow. Continue with Zyprexa 20 mg at bedtime for psychosis/mood. Continue with Adderall for ADHD. Patient is not manic Wellbutrin 150 daily. Can titrate up to help with depression. Monitor closely for any manic behavior as he reports he had bipolar history. 05/11: Active on unit. Patient reports feeling depressed because I don't want to live at [facility]. I talked to my manager intermediate about it and I want to go back to [place] . Patient declined to sign CURRY for immigration services officer to obtain collateral. Pt would not give reason as to why he does not want team to contact his immigration services officer. Pt denies SI/HI/AH. He reports visual hallucinations on and off of colors around people . Continue current tx plan. 05/12: Active on unit. Patient reports having some anxiety today; he reports sleeping well. per nursing, slept 8 hours last night. medication compliant. denies SI/HI/VH/AH. Encouraged to stay out of bed and attend groups. Continue current tx plan. 05/13: Active on unit. keeping to self. Patient reports feeling depressed and a little anxious today; he is requesting to have increase in gabapentin. Dose increased to 300mg PO BID. denies SI/HI/VH/AH. 05/14: continue current management and treatment plan. 05/15: continue current management and treatment plan. 05/16: Active on unit. Patient reports feeling good and ready to go tomorrow ; laughing and joking during assessment. denies SI/HI/VH/AH. Patient reports he plans on following up with his outpatient providers. Patient educated on: diagnosis and medication risk/benefits Reason for continued inpatient stay Substantial Risk for: stable for discharge Time Spent With Patient Time: Total time managing care of this patient today _20___ minutes.
[2025-05-16 20:00] VITALS: BP 139/82; PULSE 107; RESP 18; TEMP 37.1; O2SAT 96
--- NOTE | 2025-05-17 08:55 | P.DS_ITS ---
DS: Providers Provider Date of Service: 05/17/25 Date of admission: 05/10/25 11:39 Date of discharge: 05/17/25 Primary care physician: Unknown Physician Admitting clinician: Stacey Fermin Attending physician on admission: Juan Jose Boothe Attending physician on discharge: Juan Jose Boothe Discharging clinician: Rita Bartlett DS: Diagnosis Discharge Diagnosis (1) Bipolar affective, depress, mod: Status: Acute (2) ADHD (attention deficit hyperactivity disorder): Status: Acute (3) Suicidal ideation: Status: Acute DS: Medications Discharge Medications Home Medications: Home Medications ?Medication ?Instructions ?Recorded ?Confirmed olanzapine 20 mg tablet 20 mg PO BEDTIME 04/08/25 bupropion HCl 150 mg 24 hr tablet, 150 mg PO DAILY 05/09/25 extended release divalproex 500 mg tablet,extended 1,000 mg PO BEDTIME 04/09/25 05/09/25 release 24 hr (Depakote ER) dextroamphetamine-amphetamine ER 1 cap PO DAILY 05/09/25 30 mg 24hr capsule,extend release (Adderall XR) Previous Rx's ?Medication ?Instructions ?Recorded divalproex 250 mg tablet,extended 250 mg PO BEDTIME 30 days #30 tabs 04/18/25 release 24 hr buspirone 10 mg tablet 10 mg PO TID 30 days #90 tab s 05/16/25 gabapentin 300 mg capsule 300 mg PO BID 30 days #60 ca ps 05/16/25 Mental Status Exam Mental Status Exam Narrative: Pt is alert and oriented; behavior is cooperative and calm; dressed in casual attire; mood is described as good ; eye contact appropriate; Speech is normal rate, volume and not pressured; thought process is organized; Thought content is on discharge; denies SI/HI/VH/AH. Data Data Completed and Pending Completed studies during hospitalization [Text1]: 05/11/25 15:54 Sodium 138 Potassium 3.7 Chloride 104 Carbon Dioxide 25 Anion Gap 13 BUN 17 H Creatinine 0.89 Estim Creat Clear Calc 120.2 Estimated GFR > 60 Random Glucose 104 Estimat Average Glucose 97 Hemoglobin A1c % 5.0 Calcium 9.7 D Total Bilirubin 0.2 AST 40 H ALT 23 Alkaline Phosphatase 63 Total Protein 7.4 Albumin 4.4 Triglycerides 273 H Cholesterol 212 H LDL Cholesterol, Calc 116 H HDL Cholesterol 42 TSH 1.47 Free T4 1.17 Valproic Acid 62.9 DS: Summary Hospital Course Hospital Course: Patient is 35 years old single male with hx of bipolar and ADHD who self presented to [facility] after reported to staff at [facility] that he was experiencing increase in command auditory hallucinations as well as fleeting suicidal ideation. Patient also reports increase in depressive symptoms. [facility] just isn't working for me, it is causing me more stress and making me more depressed . Patient does not like it there but it was previously court mandated to reside as part of his parole. Patient has been compliant with medication but questioned if the medication has been helpful or working On M3: Patient reported that he has been depressed, feeling bored where I am . Patient also reports having suicidal thoughts no plan or intention. Do not want to be back there but wants to be in [place] with friends and family. This provider familiar with him from previous admission, and he expressed the same thoughts that he does not like to be there is not helpful environment. Has been increased depression and suicidal thoughts for the past 2 months. Denies SI/SIB//HI/AVH at this current time. Reports suicide attempt history when he was 14 years old when he tried to hang himself. Denies medical/surgical history. Reports sleep and appetite has been good. Mood is mellow , which is incongruent affect. He appeared to be irritable at times, but pleasant and cooperative during assessment. 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 Smoke half pack of cigarettes. Denies other substance use. No symptoms of withdrawal from any substances. Reports history of bipolar and ADHD, he is on Depakote, Wellbutrin, and Adderall. Does not appear to be manic, could be preoccupied, some what guarded. Discussed with patient regarding medication, he requests to have BuSpar increased from 7.5 b.i.d. reported that BuSpar is helping him with anxiety and he good like to take dose increased to control his anxiety. We will check Depakote level tomorrow. He is goal directed want to work on depression and thinking positively. Dx: Differential dx Bipolar mood, depressive mood versa Schiophrenic, and ADHD. It is not clear if he actually have bipolar, or schizophrenic or schizoaffective. Patient confirmed he has bipolar depressive mood and ADHD. Patient is 35 years old single male with hx of bipolar and ADHD who self presented to [facility] after reported to staff at [facility] that he was experiencing increase in command auditory hallucinations as well as fleeting suicidal ideation. Patient also reports increase in depressive symptoms. [facility] just isn't working for me, it is causing me more stress and making me mor e depressed . Patient does not like it there but it was previously court mandated to reside as part of his parole. Patient has been compliant with medication but questioned if the medication has been helpful or working. Formulation/clinical reasoning: Worsening depression anxiety, experience hallucinations with SI, history of suicide attempts. History of depression with psychotic features, ADHD. Given the above information, patient will benefit from restrictive environment, medication adjustment/changes, and refer patient back to outpatient psychiatric services for aftercare/refer patient back to [facility]. Plan Patient on 15 minute checks for safety. Admitted to . CV. Work with treatment team to do collateral and possible refer back to [facility] or discharge patient to [place] where he is friends and family. increase BuSpar 7.5 b.i.d. to 10 mg t.i.d. for anxiety. Continue with Depakote 1200 daily at bedtime. We will check level tomorrow. Continue with Zyprexa 20 mg at bedtime for psychosis/mood. Continue with Adderall for ADHD. Patient is not manic Wellbutrin 150 daily. Can titrate up to help with depression. Monitor closely for any manic behavior as he reports he had bipolar history. Active on unit. Patient reports feeling depressed because I don't want to live at [facility]. I talked to my prevention specialist about it and I want to go back to [place] . Patient declined to sign CURRY for student officer to obtain collateral. Pt would not give reason as to why he does not want team to contact his student officer. Pt denies SI/HI/AH. He reports visual hallucinations on and off of colors around people . Continue current tx plan. Active on unit. Patient reports having some anxiety today; he reports sleeping well. per nursing, slept 8 hours last night. medication compliant. denies SI/HI/VH/AH. Encouraged to stay out of bed and attend groups. Continue current tx plan. Active on unit. keeping to self. Patient reports feeling depressed and a little anxious today; he is requesting to have increase in gabapentin. Dose increased to 300mg PO BID. denies SI/HI/VH/AH. Active on unit. Patient reports feeling good and ready to go tomorrow ; laughing and joking during assessment. denies SI/HI/VH/AH. Patient reports he plans on following up with his outpatient providers. Status at Discharge Cognitive/behavioral status at discharge: Patient has insight and demonstrates good judgment in terms of wanting to pursue treatment. Patient has a safety plan that includes presenting to the closest ER or calling 911 if feeling unsafe. Functional status at discharge: independent ambulation Overall status at discharge: patient is back to baseline Time Spent with Patient Time attestation: Total time managing care of this patient today _20___ minutes. Time spent: Less than 30 minutes Discharge Plan Discharge Anticipated Discharge Date/Time: 05/17/25 11:00 Patient Disposition: Home, Self-Care Discharge Diagnosis: Bipolar d/o Referrals: [facility] [Provider Group] - 1 Week Referral Note: 05-12-25 [facility] was added to patients chart. Please call [phone] to schedule a follow up appt within 7-10 days of discharge. No release or PCP on file. Discharge Medications: New gabapentin 300 mg Capsule 300 mg PO BID 30 Days Qty: 60 0RF buspirone 10 mg Tablet 10 mg PO TID 30 Days Qty: 90 0RF Continued dextroamphetamine-amphetamine [Adderall XR] 30 mg capsule,extended release 24hr 1 cap PO DAILY olanzapine 20 mg Tablet 20 mg PO BEDTIME divalproex [Depakote ER] 500 mg Tablet Extended Release 24 Hr 1,000 mg PO BEDTIME bupropion HCl 150 mg Tablet Extended Release 24 Hr 150 mg PO DAILY divalproex 250 mg Tablet Extended Release 24 Hr 250 mg PO BEDTIME 30 Days Qty: 30 0RF Discontinued gabapentin 300 mg Capsule 300 mg PO QAM buspirone 7.5 mg tablet 7.5 mg PO BID 30 Days Qty: 60 0RF Discharge Orders: Discharge Order (Routine); Ordered 05/17/25 Ordered By: Rita Bartlett Diet: Regular diet Activity on Discharge: As tolerated Stand Alone Forms: Patient Portal Discharge page, Community Support Print Language: [place] Care Plan Goals: Maintain mood and safe behaviors Take medications as prescribed Practice coping skills Continue with outpatient providers and reach out to them as needed Health Concerns: Mood stability and behaviors Plan of Treatment: Follow up with your PCP, psychiatric provider and other outpatient providers regarding above concerns Take medications as prescribed Assessment: Patient has insight and demonstrates good judgment in terms of wanting to pursue treatment. Patient has a safety plan that includes presenting to the closest ER or calling 911 if feeling unsafe.
[2025-05-17] MEDS: buPROPion HCl XL 150 MG TAB.ER.24H PO (09:55)
[2025-05-17] MEDS: Dextroamphetamine/Amphetamine XR 10 MG CAP.ER.24H 30 MG PO (09:56)
[2025-05-17 10:24] VITALS: BP 128/82; PULSE 93; RESP 14; TEMP 36.5; O2SAT 94
== END 2025-05-17 10:53 | disposition home or self-care (01) | DRG 753 ==
LOC: HO.ED 17:26 → HO.PADLT16 05-10 12:16
PROVIDERS: Physician Assistant Medical; Registered Nurse Emergency; Admitting Provider Nurse Practitioner Psychiatric/Mental Health; Emergency Provider Emergency Medicine; Responsible Provider Registered Nurse; Visit Provider Psychiatry & Neurology Psychiatry
DX: F31.32 Bipolar disorder, current episode depressed, moderate (principal); R45.851 Suicidal ideations; F17.210 Nicotine dependence, cigarettes, uncomplicated; Z71.6 Tobacco abuse counseling; F19.10 Other psychoactive substance abuse, uncomplicated; F90.9 Attention-deficit hyperactivity disorder, unspecified type; Z20.822 Contact with and (suspected) exposure to COVID-19; Z79.899 Other long term (current) drug therapy
CPT/HCPCS: 36415; 80053; 80061; 80143; 80164; 80179; 80307; 81003; 83036; 84439; 84443; 85025; 87635; 93005; 99285; S9485

== ENCOUNTER → 2025-05-10 08:03 | Outpatient (BNV) | payer OTHER, SELFPAY | PROVIDERS: Admitting Provider Nurse Practitioner Psychiatric/Mental Health; Emergency Provider Emergency Medicine; Visit Provider Internal Medicine | DX: Z13.6 Encounter for screening for cardiovascular disorders (principal) | CPT/HCPCS: 93010 ==

== ENCOUNTER → 2025-05-10 11:39 | Outpatient (BNV) | payer OTHER, SELFPAY | PROVIDERS: Admitting Provider Nurse Practitioner Psychiatric/Mental Health; Emergency Provider Emergency Medicine; Responsible Provider Registered Nurse; Visit Provider Registered Nurse | DX: F31.32 Bipolar disorder, current episode depressed, moderate (principal); F90.9 Attention-deficit hyperactivity disorder, unspecified type; R45.851 Suicidal ideations | CPT/HCPCS: 90792; 99231; 99232; 99238 ==

== ENCOUNTER → 2025-05-10 11:39 | Outpatient (BNV) | payer OTHER, SELFPAY | PROVIDERS: Admitting Provider Nurse Practitioner Psychiatric/Mental Health; Emergency Provider Emergency Medicine; Responsible Provider Registered Nurse; Visit Provider Nurse Practitioner Family | DX: F32.A Depression, unspecified (principal) | CPT/HCPCS: 99221 ==